=== PATIENT | female | born 1980 | race Caucasian/White ===

== ENCOUNTER 2016-12-08 04:14 | Observation (INO) | payer MEDICARE, MEDICAID ==
[~2016-12-08] VITALS: Ht 162.6 cm; Wt 59.3 kg
[~2016-12-08 04:14] MED LIST: ALBU8.5H3 INH; ARIP400S INJ; ARIP400S3 INJ; ASEN10TA9; BUDE10.2 INH; BUSP15TA PO; CARB100C; CITA10TA4; CLON1POW5; GABA-827; HYDR25CA PO; NITR100C6 PO; RISP0.5T18 PO; SERT100T PO; SERT50TA PO; TRAZ100T15 PO; ZIPR40CA3
[2016-12-08 05:18] LABS: HEMOGLOBIN 12.9 g/dL (11.7-16.4)
[2016-12-08 05:26] LABS: DAU SCREEN DISCLAIMER
[2016-12-08 05:28] LABS: PATH.CAST-FLAG NOT PRESENT; SPERM-FLAG NOT PRESENT; SRC-FLAG NOT PRESENT; XTAL-FLAG NOT PRESENT; YLC-FLAG NOT PRESENT
[2016-12-08 05:57] LABS: ACETAMINOPHEN 2 mcg/mL (10-30); ASPARTATE AMINO TRANSFERASE 54 U/L (15-37); BLOOD UREA NITROGEN 8 mg/dL (7-18)
[2016-12-08] MEDS ORDERED: NITROFURANTOIN (MACROBID) 100 MG CAPSULE PO ONE (10:00)
[2016-12-08] MEDS ORDERED: DEXTROSE 4 GM TAB.CHEW PO PRN (11:00)
[2016-12-08] MEDS ORDERED: GLUCAGON 1 MG IM PRN (11:00)
[2016-12-08] MEDS ORDERED: DEXTROSE 50%, 50ML SYRINGE IVPush PRN (11:00)
[2016-12-08 11:11] VITALS: BP 110/73
[2016-12-08] MEDS: NITROFURANTOIN (MACROBID) 100 MG CAPSULE PO SCH ×2 (11:19→22:11)
[2016-12-08] MEDS: POTASSIUM CHLORIDE 20 MEQ TAB.ER.PRT PO SCH ×3 (11:56→22:11)
[2016-12-08 16:47] VITALS: BP 98/69
[2016-12-08] MEDS ORDERED: ACETAMINOPHEN 325 MG TABLET PO PRN (17:00)
[2016-12-08 17:38] LABS: IS PT STATUS REG ER OR PRE ER? NO
[2016-12-08 19:28] VITALS: BP 108/64
[2016-12-08] MEDS ORDERED: SODIUM CHLORIDE FLUSH 10ML SYR IVF SCH (21:00)
[2016-12-09 07:58] VITALS: BP 110/71
[2016-12-09] MEDS: NITROFURANTOIN (MACROBID) 100 MG CAPSULE PO SCH (08:13)
[2016-12-09 09:07] LABS: BLOOD UREA NITROGEN 6 mg/dL (7-18)
[2016-12-09] MEDS ORDERED: NITR100C6 PO (11:27)
== END 2016-12-09 12:45 ==
LOC: ED 09:58 → INTOOBSV 09:59 → EDIP 09:59 → SUATTDRO 10:20 → ED 10:34 → 3E 11:09
PROVIDERS: ADMIT Internal Medicine; ATTEND Internal Medicine
DX: O26.891 Other specified pregnancy related conditions, first trimester (principal); R45.851 Suicidal ideations; E16.2 Hypoglycemia, unspecified; E87.1 Hypo-osmolality and hyponatremia; E87.6 Hypokalemia; F15.10 Other stimulant abuse, uncomplicated; F17.210 Nicotine dependence, cigarettes, uncomplicated; F31.9 Bipolar disorder, unspecified; F41.0 Panic disorder [episodic paroxysmal anxiety]; F41.1 Generalized anxiety disorder; G43.909 Migraine, unspecified, not intractable, without status migrainosus; J45.20 Mild intermittent asthma, uncomplicated; O23.11 Infections of bladder in pregnancy, first trimester; O98.411 Viral hepatitis complicating pregnancy, first trimester; O99.281 Endocrine, nutritional and metabolic diseases complicating pregnancy, first trimester; O99.321 Drug use complicating pregnancy, first trimester; O99.331 Smoking (tobacco) complicating pregnancy, first trimester; O99.341 Other mental disorders complicating pregnancy, first trimester; O99.351 Diseases of the nervous system complicating pregnancy, first trimester; O99.511 Diseases of the respiratory system complicating pregnancy, first trimester
CPT/HCPCS: 36415; 76801; 80048; 80053; 80307; 80329; 81003; 82962; 83735; 84484; 84702; 84703; 85025; 87086; 93005; 99285; G0378; G0480

== ENCOUNTER 2017-03-27 14:47 | Observation (INO) | payer MEDICARE, MEDICAID ==
[~2017-03-27] VITALS: Ht 162.6 cm; Wt 70.8 kg
[2017-03-27 15:20] LABS: HEMATOCRIT 38.8 % (34.6-47.8); HEMOGLOBIN 12.9 g/dL (11.7-16.4); WHITE BLOOD COUNT 11.2 x10^3/uL (3.4-10)
[2017-03-27 15:30] LABS: BLOOD UREA NITROGEN 6 mg/dL (7-18)
[2017-03-27 15:32] LABS: ACETAMINOPHEN < 2 mcg/mL (10-30)
[2017-03-27 16:07] LABS: DAU SCREEN DISCLAIMER
[2017-03-27] MEDS ORDERED: DIPHENHYDRAMINE 50 MG CAPSULE PO PRN (20:00)
[2017-03-27 20:34] VITALS: BP 106/65
[2017-03-27] MEDS ORDERED: PROP20SO PO/NG (23:39)
[2017-03-27] MEDS ORDERED: CITA20TA9 PO (23:41)
[2017-03-27] MEDS ORDERED: FLUT9.9S INH (23:45)
[2017-03-27] MEDS ORDERED: BUDE10.2 INH (23:47)
[2017-03-28 08:00] VITALS: BP 86/47
[2017-03-28] MEDS: ACETAMINOPHEN 325 MG TABLET PO PRN (08:16)
[2017-03-28 20:02] VITALS: BP 103/63
[2017-03-28] MEDS: CEFDINIR 300 MG CAPSULE PO SCH (20:23)
[2017-03-29 07:04] VITALS: BP 98/66
[2017-03-29] MEDS: CEFDINIR 300 MG CAPSULE PO SCH ×2 (09:25→20:52)
[2017-03-29] MEDS: PRENATAL VIT/IRON/FA 1 EACH TABLET PO SCH (09:25)
[2017-03-29] MEDS: ACETAMINOPHEN 325 MG TABLET PO PRN (10:44)
[2017-03-29 20:43] VITALS: BP 124/77
[2017-03-29] MEDS: DIPHENHYDRAMINE 25 MG CAPSULE PO PRN (20:52)
[2017-03-29 21:34] VITALS: BP 101/64
[2017-03-29] MEDS: LACTOBACILLUS CHEW TABLET PO SCH (22:42)
[2017-03-30 02:44] VITALS: BP 90/51
[2017-03-30 07:39] VITALS: BP 103/53
[2017-03-30] MEDS: PRENATAL VIT/IRON/FA 1 EACH TABLET PO SCH (09:06)
[2017-03-30] MEDS: ACETAMINOPHEN 325 MG TABLET PO PRN ×2 (09:06→20:47)
[2017-03-30] MEDS: LACTOBACILLUS CHEW TABLET PO SCH ×3 (09:06→20:47)
[2017-03-30] MEDS: CEFDINIR 300 MG CAPSULE PO SCH ×2 (09:07→20:47)
[2017-03-30 12:00] VITALS: BP 101/63
[2017-03-30] MEDS ORDERED: DIPHENHYDRAMINE 25 MG CAPSULE PO ONE (12:00)
[2017-03-30] MEDS ORDERED: FLUTICASONE NASAL SPRAY 16GM NAS PRN (12:30)
[2017-03-30 19:48] VITALS: BP 102/68
[2017-03-30] MEDS: DIPHENHYDRAMINE 25 MG CAPSULE PO PRN (23:22)
[2017-03-31 07:56] VITALS: BP 108/68
[2017-03-31] MEDS: FLUTICASONE/VILANTEROL 200-25MCG/INH INH SCH ×2 (09:00→11:45)
[2017-03-31] MEDS: CEFDINIR 300 MG CAPSULE PO SCH ×2 (09:00→20:32)
[2017-03-31] MEDS: LACTOBACILLUS CHEW TABLET PO SCH ×3 (09:00→20:32)
[2017-03-31] MEDS: PRENATAL VIT/IRON/FA 1 EACH TABLET PO SCH (09:00)
[2017-03-31] MEDS: ACETAMINOPHEN 325 MG TABLET PO PRN (13:44)
[2017-03-31 18:08] LABS: HEMATOCRIT 41.5 % (34.6-47.8); HEMOGLOBIN 13.6 g/dL (11.7-16.4); WHITE BLOOD COUNT 9.2 x10^3/uL (3.4-10)
[2017-03-31 18:22] LABS: HIV 1&2 ANTIBODY SCREEN Nonreactive (Nonreactive); HIV-1 p24 ANTIGEN Nonreactive (Nonreactive)
[2017-03-31 20:00] VITALS: BP 113/74
[2017-03-31] MEDS: DIPHENHYDRAMINE 25 MG CAPSULE PO PRN (21:43)
[2017-04-01 07:23] VITALS: BP 103/66
[2017-04-01] MEDS: PRENATAL VIT/IRON/FA 1 EACH TABLET PO SCH (08:02)
[2017-04-01] MEDS: CEFDINIR 300 MG CAPSULE PO SCH ×2 (08:02→20:10)
[2017-04-01] MEDS: LACTOBACILLUS CHEW TABLET PO SCH ×3 (08:02→20:10)
[2017-04-01] MEDS: FLUTICASONE/VILANTEROL 200-25MCG/INH INH SCH (08:02)
[2017-04-01] MEDS: ACETAMINOPHEN 325 MG TABLET PO PRN ×2 (09:33→20:10)
[2017-04-01 20:04] VITALS: BP 139/82
[2017-04-01] MEDS: DIPHENHYDRAMINE 25 MG CAPSULE PO PRN (21:35)
[2017-04-02 08:00] VITALS: BP 103/66
[2017-04-02] MEDS: CEFDINIR 300 MG CAPSULE PO SCH ×2 (08:34→20:37)
[2017-04-02] MEDS: LACTOBACILLUS CHEW TABLET PO SCH ×3 (08:34→20:37)
[2017-04-02] MEDS: PRENATAL VIT/IRON/FA 1 EACH TABLET PO SCH (08:34)
[2017-04-02] MEDS: FLUTICASONE/VILANTEROL 200-25MCG/INH INH SCH (08:35)
[2017-04-02] MEDS: DIPHENHYDRAMINE 25 MG CAPSULE PO PRN ×2 (13:25→23:39)
[2017-04-02] MEDS: LURASIDONE 20 MG TABLET PO SCH (16:30)
[2017-04-02 19:36] VITALS: BP 109/73
[2017-04-02] MEDS: ACETAMINOPHEN 325 MG TABLET PO PRN (22:24)
[2017-04-03 07:25] VITALS: BP 101/68
[2017-04-03] MEDS: PRENATAL VIT/IRON/FA 1 EACH TABLET PO SCH (09:43)
[2017-04-03] MEDS: FLUTICASONE/VILANTEROL 200-25MCG/INH INH SCH (09:44)
[2017-04-03] MEDS: ACETAMINOPHEN 325 MG TABLET PO PRN ×2 (09:48→20:49)
[2017-04-03] MEDS: LACTOBACILLUS CHEW TABLET PO SCH ×3 (11:15→20:42)
[2017-04-03] MEDS: DIPHENHYDRAMINE 25 MG CAPSULE PO PRN ×2 (12:50→22:16)
[2017-04-03] MEDS: LURASIDONE 20 MG TABLET PO SCH (17:37)
[2017-04-03 19:47] VITALS: BP 94/63
[2017-04-04 07:29] VITALS: BP 101/63
[2017-04-04] MEDS: DIPHENHYDRAMINE 25 MG CAPSULE PO PRN ×2 (08:47→21:45)
[2017-04-04] MEDS: PRENATAL VIT/IRON/FA 1 EACH TABLET PO SCH (08:56)
[2017-04-04] MEDS: FLUTICASONE/VILANTEROL 200-25MCG/INH INH SCH (08:57)
[2017-04-04] MEDS: LACTOBACILLUS CHEW TABLET PO SCH ×3 (08:57→20:22)
[2017-04-04] MEDS: LURASIDONE 20 MG TABLET PO SCH (16:15)
[2017-04-04 19:45] VITALS: BP 106/75
[2017-04-05] MEDS: ACETAMINOPHEN 325 MG TABLET PO PRN ×2 (02:32→18:43)
[2017-04-05 08:06] VITALS: BP 96/63
[2017-04-05] MEDS: PRENATAL VIT/IRON/FA 1 EACH TABLET PO SCH (08:56)
[2017-04-05] MEDS: LACTOBACILLUS CHEW TABLET PO SCH ×3 (08:56→21:00)
[2017-04-05] MEDS: FLUTICASONE/VILANTEROL 200-25MCG/INH INH SCH (08:56)
[2017-04-05] MEDS: FLUTICASONE NASAL SPRAY 16GM NAS PRN (09:30)
[2017-04-05] MEDS: DIPHENHYDRAMINE 25 MG CAPSULE PO PRN (16:11)
[2017-04-05] MEDS: LURASIDONE 20 MG TABLET PO SCH (16:54)
[2017-04-05 19:52] VITALS: BP 101/63
[2017-04-06 07:39] VITALS: BP 104/54
[2017-04-06] MEDS: LURASIDONE 20 MG TABLET PO SCH ×2 (09:39→16:41)
[2017-04-06] MEDS: LACTOBACILLUS CHEW TABLET PO SCH ×3 (09:40→21:35)
[2017-04-06] MEDS: PRENATAL VIT/IRON/FA 1 EACH TABLET PO SCH (09:40)
[2017-04-06] MEDS: FLUTICASONE/VILANTEROL 200-25MCG/INH INH SCH (09:45)
[2017-04-06] MEDS: FLUTICASONE NASAL SPRAY 16GM NAS PRN (09:46)
[2017-04-06 19:45] VITALS: BP 107/69
[2017-04-07] MEDS: DIPHENHYDRAMINE 25 MG CAPSULE PO PRN ×2 (00:48→18:00)
[2017-04-07 07:11] VITALS: BP 82/44
[2017-04-07] MEDS: FLUTICASONE/VILANTEROL 200-25MCG/INH INH SCH (09:12)
[2017-04-07] MEDS: LACTOBACILLUS CHEW TABLET PO SCH ×3 (09:13→20:13)
[2017-04-07] MEDS: PRENATAL VIT/IRON/FA 1 EACH TABLET PO SCH (09:13)
[2017-04-07] MEDS: FLUTICASONE NASAL SPRAY 16GM NAS PRN (09:14)
[2017-04-07] MEDS: LURASIDONE 20 MG TABLET PO SCH ×2 (09:14→16:30)
[2017-04-07 19:44] VITALS: BP 112/73
[2017-04-07] MEDS: ACETAMINOPHEN 325 MG TABLET PO PRN (20:13)
[2017-04-08 07:13] VITALS: BP 100/68
[2017-04-08] MEDS: PRENATAL VIT/IRON/FA 1 EACH TABLET PO SCH (08:27)
[2017-04-08] MEDS: FLUTICASONE/VILANTEROL 200-25MCG/INH INH SCH (08:28)
[2017-04-08] MEDS: LURASIDONE 20 MG TABLET PO SCH ×2 (08:28→16:01)
[2017-04-08] MEDS: LACTOBACILLUS CHEW TABLET PO SCH ×3 (08:28→19:57)
[2017-04-08] MEDS: ACETAMINOPHEN 325 MG TABLET PO PRN ×2 (08:32→18:27)
[2017-04-08] MEDS: FLUTICASONE NASAL SPRAY 16GM NAS PRN (08:32)
[2017-04-08 19:38] VITALS: BP 108/73
[2017-04-08] MEDS: DIPHENHYDRAMINE 25 MG CAPSULE PO PRN (19:57)
[2017-04-09 06:24] LABS: HEMATOCRIT 36.7 % (34.6-47.8); HEMOGLOBIN 12.1 g/dL (11.7-16.4)
[2017-04-09 08:00] VITALS: BP 119/76
[2017-04-09] MEDS: ACETAMINOPHEN 325 MG TABLET PO PRN ×3 (08:23→20:42)
[2017-04-09] MEDS: LACTOBACILLUS CHEW TABLET PO SCH ×3 (08:23→20:42)
[2017-04-09] MEDS: LURASIDONE 20 MG TABLET PO SCH ×2 (08:23→16:15)
[2017-04-09] MEDS: FLUTICASONE/VILANTEROL 200-25MCG/INH INH SCH (09:14)
[2017-04-09] MEDS: FLUTICASONE NASAL SPRAY 16GM NAS PRN (09:14)
[2017-04-09] MEDS: PRENATAL VIT/IRON/FA 1 EACH TABLET PO SCH (09:14)
[2017-04-09] MEDS ORDERED: metroNIDAZOLE 500 MG TABLET PO ONE (10:00)
[2017-04-09] MEDS ORDERED: ONDANSETRON ODT 8 MG PO ONE (10:00)
[2017-04-09] MEDS: DIPHENHYDRAMINE 25 MG CAPSULE PO PRN ×2 (16:15→23:32)
[2017-04-09 19:29] VITALS: BP 101/63
[2017-04-10] MEDS: PRENATAL VIT/IRON/FA 1 EACH TABLET PO SCH (08:40)
[2017-04-10] MEDS: FLUTICASONE/VILANTEROL 200-25MCG/INH INH SCH (08:40)
[2017-04-10] MEDS: LURASIDONE 20 MG TABLET PO SCH ×2 (08:40→16:22)
[2017-04-10] MEDS: LACTOBACILLUS CHEW TABLET PO SCH ×3 (08:40→20:48)
[2017-04-10] MEDS: ACETAMINOPHEN 325 MG TABLET PO PRN ×2 (08:43→20:48)
[2017-04-10 08:49] VITALS: BP 105/67
[2017-04-10] MEDS: FLUTICASONE NASAL SPRAY 16GM NAS PRN (12:18)
[2017-04-10] MEDS: DIPHENHYDRAMINE 25 MG CAPSULE PO PRN (18:30)
[2017-04-10 19:49] VITALS: BP 110/74
[2017-04-11] MEDS: DIPHENHYDRAMINE 25 MG CAPSULE PO PRN ×3 (02:36→21:34)
[2017-04-11] MEDS: ACETAMINOPHEN 325 MG TABLET PO PRN ×3 (03:49→17:22)
[2017-04-11] MEDS: FLUTICASONE/VILANTEROL 200-25MCG/INH INH SCH (08:20)
[2017-04-11] MEDS: LACTOBACILLUS CHEW TABLET PO SCH ×3 (08:20→21:34)
[2017-04-11] MEDS: FLUTICASONE NASAL SPRAY 16GM NAS PRN (08:20)
[2017-04-11] MEDS: LURASIDONE 20 MG TABLET PO SCH ×2 (08:20→17:00)
[2017-04-11 08:28] VITALS: BP 117/74
[2017-04-11] MEDS: PRENATAL VIT/IRON/FA 1 EACH TABLET PO SCH (12:20)
[2017-04-11 20:00] VITALS: BP 112/76
[2017-04-12] MEDS: ACETAMINOPHEN 325 MG TABLET PO PRN ×2 (00:53→16:18)
[2017-04-12] MEDS: DIPHENHYDRAMINE 25 MG CAPSULE PO PRN ×2 (05:28→19:50)
[2017-04-12 07:27] VITALS: BP 122/83
[2017-04-12] MEDS: FLUTICASONE/VILANTEROL 200-25MCG/INH INH SCH (08:25)
[2017-04-12] MEDS: LURASIDONE 20 MG TABLET PO SCH (08:26)
[2017-04-12] MEDS: PRENATAL VIT/IRON/FA 1 EACH TABLET PO SCH (08:26)
[2017-04-12] MEDS: LACTOBACILLUS CHEW TABLET PO SCH ×3 (08:27→22:04)
[2017-04-12] MEDS ORDERED: LURASIDONE 20 MG TABLET PO SCH ×2 (17:00→18:00)
[2017-04-12 20:25] VITALS: BP 114/74
[2017-04-12] MEDS ORDERED: DIPHENHYDRAMINE 25 MG CAPSULE PO SCH (21:00)
[2017-04-13 07:39] VITALS: BP 103/67
[2017-04-13] MEDS: LACTOBACILLUS CHEW TABLET PO SCH (08:05)
[2017-04-13] MEDS: PRENATAL VIT/IRON/FA 1 EACH TABLET PO SCH (08:05)
[2017-04-13] MEDS: FLUTICASONE/VILANTEROL 200-25MCG/INH INH SCH (08:17)
[2017-04-13] MEDS: ACETAMINOPHEN 325 MG TABLET PO PRN (14:36)
[2017-04-13] MEDS ORDERED: LURA20TA PO (14:48)
[2017-04-13] MEDS ORDERED: FLUT1BLS INH (14:48)
[2017-04-13] MEDS ORDERED: DIPH25CA61 PO ×2 (14:48)
[2017-04-13] MEDS ORDERED: LURASIDONE 20 MG TABLET PO SCH (17:00)
== END 2017-04-13 16:12 | disposition home or self-care (01) ==
LOC: ED 19:20 → INTOOBSV 19:25 → EDIP 19:25 → SUATTDRO 19:38 → 3E 20:25 → 3NE 03-29 21:32 → 3E 03-30 12:41
PROVIDERS: ADMIT Hospitalist; ATTEND Internal Medicine
DX: O99.342 Other mental disorders complicating pregnancy, second trimester (principal); R45.851 Suicidal ideations; F20.9 Schizophrenia, unspecified; F31.9 Bipolar disorder, unspecified; F43.10 Post-traumatic stress disorder, unspecified; F41.0 Panic disorder [episodic paroxysmal anxiety]; O23.42 Unspecified infection of urinary tract in pregnancy, second trimester; O98.32 Other infections with a predominantly sexual mode of transmission complicating childbirth; A59.9 Trichomoniasis, unspecified; O99.324 Drug use complicating childbirth; F15.20 Other stimulant dependence, uncomplicated; O35.0XX0 Maternal care for (suspected) central nervous system malformation in fetus, not applicable or unspecified; G91.9 Hydrocephalus, unspecified; O99.52 Diseases of the respiratory system complicating childbirth; J45.909 Unspecified asthma, uncomplicated; O99.332 Smoking (tobacco) complicating pregnancy, second trimester; F17.210 Nicotine dependence, cigarettes, uncomplicated; O26.892 Other specified pregnancy related conditions, second trimester; R19.7 Diarrhea, unspecified; O32.2XX0 Maternal care for transverse and oblique lie, not applicable or unspecified; Z3A.26 26 weeks gestation of pregnancy; Z91.14 Patient's other noncompliance with medication regimen; Z91.5 Personal history of self-harm; Z81.8 Family history of other mental and behavioral disorders; Z81.1 Family history of alcohol abuse and dependence
CPT/HCPCS: 36415; 76815; 80048; 80307; 80329; 81001; 82040; 85025; 86592; 86703; 86762; 86850; 86900; 87086; 87340; 87491; 87591; 87899; 99285; G0378; Q0162; Q0163; G0435; G0480

== ENCOUNTER 2017-06-17 11:35 | Observation (INO) | payer MEDICARE, MEDICAID ==
[~2017-06-17] VITALS: Ht 162.6 cm; Wt 75.5 kg
[~2017-06-17 11:35] MED LIST changes: -ALBU8.5H3 INH; +ALBU8.5H8 INH; +CITA20TA9 PO; +DIPH25CA61 PO; +FLUT1BLS INH; +FLUT9.9S INH; +LURA20TA PO; +PROP20SO PO/NG; -RISP0.5T18 PO; +RISP0.5T24 PO
[2017-06-17 12:03] LABS: DAU SCREEN DISCLAIMER
[2017-06-17 13:00] LABS: HEMATOCRIT 35.9 % (34.6-47.8); HEMOGLOBIN 11.8 g/dL (11.7-16.4); WHITE BLOOD COUNT 8.3 x10^3/uL (3.4-10)
[2017-06-17 13:13] LABS: ACETAMINOPHEN < 2 mcg/mL (10-30); BLOOD UREA NITROGEN 4 mg/dL (7-18)
[2017-06-17] MEDS ORDERED: DIPHENHYDRAMINE 25 MG CAPSULE PO PRN (17:30)
[2017-06-17] MEDS ORDERED: FLUTICASONE NASAL SPRAY 16GM NAS PRN (17:30)
[2017-06-17 19:21] VITALS: BP 113/73
[2017-06-17] MEDS ORDERED: IBUPROFEN 200 MG TABLET PO PRN (20:30)
[2017-06-17] MEDS: DIPHENHYDRAMINE 25 MG CAPSULE PO SCH (20:37)
[2017-06-18] MEDS: PRENATAL VIT/IRON/FA 1 EACH TABLET PO SCH (07:54)
[2017-06-18] MEDS: ACETAMINOPHEN 325 MG TABLET PO PRN ×3 (07:56→21:01)
[2017-06-18 08:13] VITALS: BP 111/77
[2017-06-18] MEDS: FLUTICASONE/VILANTEROL 200-25MCG/INH INH SCH (09:00)
[2017-06-18 19:28] VITALS: BP 122/78
[2017-06-18] MEDS: DIPHENHYDRAMINE 25 MG CAPSULE PO SCH (20:58)
[2017-06-19 08:00] VITALS: BP 112/57
[2017-06-19] MEDS: PRENATAL VIT/IRON/FA 1 EACH TABLET PO SCH (08:28)
[2017-06-19] MEDS: FLUTICASONE/VILANTEROL 200-25MCG/INH INH SCH (08:29)
[2017-06-19] MEDS: ACETAMINOPHEN 325 MG TABLET PO PRN ×3 (11:40→20:05)
[2017-06-19 19:19] VITALS: BP 119/80
[2017-06-19] MEDS ORDERED: FLUTICASONE NASAL SPRAY 16GM NAS PRN (20:00)
[2017-06-19] MEDS: DIPHENHYDRAMINE 25 MG CAPSULE PO SCH (20:05)
[2017-06-19] MEDS: CALCIUM CARBONATE 500 MG TAB.CHEW PO PRN (22:09)
[2017-06-20] MEDS: ACETAMINOPHEN 325 MG TABLET PO PRN ×4 (05:01→21:13)
[2017-06-20 08:41] VITALS: BP 116/79
[2017-06-20] MEDS: FLUTICASONE/VILANTEROL 200-25MCG/INH INH SCH (08:49)
[2017-06-20] MEDS: PRENATAL VIT/IRON/FA 1 EACH TABLET PO SCH (08:49)
[2017-06-20] MEDS ORDERED: metroNIDAZOLE 500 MG TABLET PO ONE (09:00)
[2017-06-20] MEDS: DIPHENHYDRAMINE 25 MG CAPSULE PO PRN ×2 (11:16→17:19)
[2017-06-20 19:32] VITALS: BP 118/70
[2017-06-20] MEDS: CALCIUM CARBONATE 500 MG TAB.CHEW PO PRN (21:13)
[2017-06-20] MEDS: DIPHENHYDRAMINE 25 MG CAPSULE PO SCH (21:13)
[2017-06-21] MEDS: PRENATAL VIT/IRON/FA 1 EACH TABLET PO SCH (08:42)
[2017-06-21] MEDS: FLUTICASONE/VILANTEROL 200-25MCG/INH INH SCH (08:43)
[2017-06-21 08:47] VITALS: BP 117/69
[2017-06-21] MEDS: ACETAMINOPHEN 325 MG TABLET PO PRN ×3 (09:15→19:30)
[2017-06-21] MEDS: DIPHENHYDRAMINE 25 MG CAPSULE PO PRN ×2 (09:59→18:46)
[2017-06-21] MEDS: CALCIUM CARBONATE 500 MG TAB.CHEW PO PRN (19:30)
[2017-06-21 19:40] VITALS: BP 111/79
[2017-06-21] MEDS: RISPERIDONE 2 MG TABLET PO SCH (21:37)
[2017-06-21] MEDS: DIPHENHYDRAMINE 25 MG CAPSULE PO SCH (21:37)
[2017-06-22 07:52] VITALS: BP 116/73
[2017-06-22] MEDS: PRENATAL VIT/IRON/FA 1 EACH TABLET PO SCH (08:41)
[2017-06-22] MEDS: FLUTICASONE/VILANTEROL 200-25MCG/INH INH SCH (08:41)
[2017-06-22] MEDS: ACETAMINOPHEN 325 MG TABLET PO PRN ×3 (08:48→20:51)
[2017-06-22] MEDS: DIPHENHYDRAMINE 25 MG CAPSULE PO PRN (12:41)
[2017-06-22 19:25] VITALS: BP 123/80
[2017-06-22] MEDS: RISPERIDONE 2 MG TABLET PO SCH (20:09)
[2017-06-22] MEDS: DIPHENHYDRAMINE 25 MG CAPSULE PO SCH (20:10)
[2017-06-23] MEDS: ACETAMINOPHEN 325 MG TABLET PO PRN (04:25)
[2017-06-23 07:30] VITALS: BP 114/76
[2017-06-23] MEDS: FLUTICASONE/VILANTEROL 200-25MCG/INH INH SCH (08:51)
[2017-06-23] MEDS: PRENATAL VIT/IRON/FA 1 EACH TABLET PO SCH (08:51)
[2017-06-23] MEDS: DIPHENHYDRAMINE 25 MG CAPSULE PO PRN (13:21)
[2017-06-23] MEDS ORDERED: RISP2TAB35 PO (14:23)
== END 2017-06-23 14:45 | disposition home or self-care (01) ==
LOC: ED 13:11 → EDIP 16:19 → 3E 18:14
PROVIDERS: ADMIT Internal Medicine; ATTEND Family Medicine
DX: O99.343 Other mental disorders complicating pregnancy, third trimester (principal); R45.851 Suicidal ideations; F20.9 Schizophrenia, unspecified; F15.20 Other stimulant dependence, uncomplicated; O99.333 Smoking (tobacco) complicating pregnancy, third trimester; O99.513 Diseases of the respiratory system complicating pregnancy, third trimester; J45.909 Unspecified asthma, uncomplicated; G43.909 Migraine, unspecified, not intractable, without status migrainosus; F43.10 Post-traumatic stress disorder, unspecified; F17.210 Nicotine dependence, cigarettes, uncomplicated; Z3A.38 38 weeks gestation of pregnancy; B19.20 Unspecified viral hepatitis C without hepatic coma
CPT/HCPCS: 36415; 76805; 80048; 80307; 80329; 81001; 82040; 84703; 85025; 87086; 87147; 93005; 99285; G0378; Q0163; G0479; G0480

== ENCOUNTER 2017-07-25 10:16 | Inpatient (IN) | payer MEDICARE, MEDICAID ==
[~2017-07-25] VITALS: Ht 162.6 cm; Wt 76.8 kg
[~2017-07-25 10:16] MED LIST changes: +RISP2TAB35 PO
[2017-07-25 11:17] LABS: DAU SCREEN DISCLAIMER
[2017-07-25] MEDS ORDERED: PRENATAL PO (11:29)
[2017-07-25] MEDS ORDERED: ALBU18HF INH (11:29)
[2017-07-25] MEDS ORDERED: DIPH25TA65 PO (11:29)
[2017-07-25 11:41] LABS: HEMATOCRIT 35.8 % (34.6-47.8); HEMOGLOBIN 11.5 g/dL (11.7-16.4); WHITE BLOOD COUNT 10.3 x10^3/uL (3.4-10)
[2017-07-25 11:52] LABS: ASPARTATE AMINO TRANSFERASE 33 U/L (15-37); BLOOD UREA NITROGEN 5 mg/dL (7-18)
[2017-07-25 11:55] LABS: ACETAMINOPHEN < 2 mcg/mL (10-30)
[2017-07-25] MEDS ORDERED: NITROFURANTOIN (MACROBID) 100 MG CAPSULE PO ONE (12:00)
[2017-07-25] MEDS ORDERED: DOCUSATE 100 MG CAPSULE PO PRN (16:30)
[2017-07-25] MEDS: SODIUM CHLORIDE 0.9% 1,000 ML IV SCH (17:08)
[2017-07-25 18:06] VITALS: BP 131/74
[2017-07-25 20:08] VITALS: BP 133/78
[2017-07-25] MEDS: NITROFURANTOIN (MACROBID) 100 MG CAPSULE PO SCH (20:36)
[2017-07-25] MEDS: DIPHENHYDRAMINE 25 MG CAPSULE PO PRN (20:37)
[2017-07-25] MEDS: ACETAMINOPHEN 325 MG TABLET PO PRN (20:38)
[2017-07-25] MEDS ORDERED: RISPERIDONE 2 MG TABLET PO SCH (21:00)
[2017-07-26] MEDS: SODIUM CHLORIDE 0.9% 1,000 ML IV SCH (00:46)
[2017-07-26 02:30] VITALS: BP 118/73
[2017-07-26 04:38] LABS: HEMATOCRIT 33.1 % (34.6-47.8); HEMOGLOBIN 10.8 g/dL (11.7-16.4); WHITE BLOOD COUNT 8.7 x10^3/uL (3.4-10)
[2017-07-26 04:47] LABS: ASPARTATE AMINO TRANSFERASE 28 U/L (15-37); BLOOD UREA NITROGEN 8 mg/dL (7-18)
[2017-07-26 07:28] VITALS: BP 98/63
[2017-07-26] MEDS: NITROFURANTOIN (MACROBID) 100 MG CAPSULE PO SCH ×2 (08:31→21:55)
[2017-07-26] MEDS: ACETAMINOPHEN 325 MG TABLET PO PRN ×3 (10:08→23:30)
[2017-07-26] MEDS: FLUTICASONE/VILANTEROL 200-25MCG/INH INH SCH (11:59)
[2017-07-26] MEDS ORDERED: RISPERIDONE 1 MG TABLET PO ONE (14:00)
[2017-07-26 14:20] VITALS: BP 126/79
[2017-07-26] MEDS: DIPHENHYDRAMINE 25 MG CAPSULE PO PRN (18:42)
[2017-07-26 19:19] VITALS: BP_SYST 120; BP_SYST 125; BP_DIAS 75; BP_DIAS 77
[2017-07-26] MEDS ORDERED: RISPERIDONE 1 MG TABLET PO SCH (21:00)
[2017-07-27] MEDS: DIPHENHYDRAMINE 25 MG CAPSULE PO PRN ×3 (05:58→20:30)
[2017-07-27 07:37] VITALS: BP 124/74
[2017-07-27] MEDS: NITROFURANTOIN (MACROBID) 100 MG CAPSULE PO SCH ×2 (08:12→20:34)
[2017-07-27] MEDS: ACETAMINOPHEN 325 MG TABLET PO PRN ×3 (08:12→20:29)
[2017-07-27] MEDS: FLUTICASONE/VILANTEROL 200-25MCG/INH INH SCH (08:13)
[2017-07-27] MEDS: RISPERIDONE 1 MG TABLET PO SCH ×2 (14:18→20:30)
[2017-07-27 19:12] VITALS: BP 138/89
[2017-07-27] MEDS ORDERED: RISPERIDONE 1 MG TABLET PO SCH (21:00)
[2017-07-28] VITALS (8 sets, daily range): BP systolic 109–159; BP diastolic 69–97
[2017-07-28] MEDS: DIPHENHYDRAMINE 25 MG CAPSULE PO PRN ×2 (05:32→22:51)
[2017-07-28] MEDS: ACETAMINOPHEN 325 MG TABLET PO PRN ×2 (05:32→13:45)
[2017-07-28 05:50] LABS: HEMATOCRIT 31.6 % (34.6-47.8); HEMOGLOBIN 10.4 g/dL (11.7-16.4); WHITE BLOOD COUNT 9.3 x10^3/uL (3.4-10)
[2017-07-28 06:19] LABS: ASPARTATE AMINO TRANSFERASE 24 U/L (15-37); BLOOD UREA NITROGEN 12 mg/dL (7-18)
[2017-07-28] MEDS ORDERED: RISPERIDONE 2 MG TABLET ONE (08:03)
[2017-07-28] MEDS: FLUTICASONE/VILANTEROL 200-25MCG/INH INH SCH (08:06)
[2017-07-28] MEDS: NITROFURANTOIN (MACROBID) 100 MG CAPSULE PO SCH ×2 (08:07→21:03)
[2017-07-28] MEDS: RISPERIDONE 1 MG TABLET PO SCH ×2 (08:08→21:27)
[2017-07-28] MEDS ORDERED: LACTATED RINGERS 1,000 ML IV SCH ×4 (12:24→15:00)
[2017-07-28] MEDS ORDERED: OXYTOCIN 30U/ 0.9% NaCL 500ML 500 ML IV SCH ×2 (12:24→13:06)
[2017-07-28] MEDS ORDERED: LACTATED RINGERS 1,000 ML IVBOLUS ONE ×2 (12:30→13:30)
[2017-07-28] MEDS ORDERED: METOCLOPRAMIDE 5 MG/ML, 2ML IV ONE ×2 (12:30→13:30)
[2017-07-28] MEDS ORDERED: SODIUM CITRATE/CITRIC ACID 30 ML UDC PO ONE ×2 (12:30→13:30)
[2017-07-28 12:49] LABS: HEMATOCRIT 33.6 % (34.6-47.8); HEMOGLOBIN 10.9 g/dL (11.7-16.4); WHITE BLOOD COUNT 9.9 x10^3/uL (3.4-10)
[2017-07-28] MEDS ORDERED: NEWBORN KIT ONE (13:18)
[2017-07-28] MEDS ORDERED: SODIUM CITRATE/CITRIC ACID 30 ML UDC ONE (13:19)
[2017-07-28] MEDS ORDERED: METOCLOPRAMIDE 5 MG/ML, 2ML ONE (13:19)
[2017-07-28] MEDS ORDERED: ACETAMINOPHEN 325 MG TABLET ONE (13:44)
[2017-07-28] MEDS ORDERED: EPHEDRINE 50 MG/ML, 1ML ONE (13:50)
[2017-07-28] MEDS ORDERED: PHENYLEPHRINE 10 MG/ML ONE (13:50)
[2017-07-28] MEDS ORDERED: ONDANSETRON 2MG/ML, 2ML ONE ×2 (13:50→15:32)
[2017-07-28] MEDS ORDERED: CEFAZOLIN 1,000 MG ONE (13:50)
[2017-07-28] MEDS ORDERED: morphine SULFATE/PF 0.5 MG/ML, 10ML ONE (13:55)
[2017-07-28] MEDS: OXYTOCIN 30U/ 0.9% NaCL 500ML 500 ML IV SCH (14:50)
[2017-07-28] MEDS: LACTATED RINGERS 1,000 ML IV SCH ×3 (14:50→22:50)
[2017-07-28] MEDS ORDERED: MISOPROSTOL 200 MCG TABLET PR PRN (15:00)
[2017-07-28] MEDS ORDERED: ACETAMINOPHEN 325 MG TABLET PO PRN (15:00)
[2017-07-28] MEDS ORDERED: KETOROLAC 30 MG/1 ML ONE (15:32)
[2017-07-28] MEDS: ONDANSETRON 2MG/ML, 2ML IV PRN ×2 (15:33→21:03)
[2017-07-28] MEDS: KETOROLAC 30 MG/1 ML IV SCH ×2 (15:34→21:03)
[2017-07-28] MEDS ORDERED: OXYcodone/APAP 5/325MG TABLET ONE (15:44)
[2017-07-28] MEDS: OXYcodone/APAP 5/325MG TABLET PO PRN (15:54)
[2017-07-28 22:25] LABS: HEMATOCRIT 31.4 % (34.6-47.8); HEMOGLOBIN 10.3 g/dL (11.7-16.4); WHITE BLOOD COUNT 13.8 x10^3/uL (3.4-10)
[2017-07-29] MEDS: PROMETHAZINE 25MG TABLET PO PRN (00:22)
[2017-07-29] MEDS: OXYTOCIN 30U/ 0.9% NaCL 500ML 500 ML IV SCH ×2 (00:50→10:50)
[2017-07-29] MEDS: OXYcodone IR 5MG TABLET PO PRN ×5 (01:20→20:06)
[2017-07-29] MEDS: LACTATED RINGERS 1,000 ML IV SCH ×3 (01:20→10:50)
[2017-07-29 02:50] VITALS: BP 118/73
[2017-07-29] MEDS: KETOROLAC 30 MG/1 ML IV SCH ×4 (03:17→22:45)
[2017-07-29] MEDS: DIPHENHYDRAMINE 25 MG CAPSULE PO PRN ×4 (04:25→22:45)
[2017-07-29 05:50] LABS: BLOOD UREA NITROGEN 11 mg/dL (7-18); HEMOGLOBIN 8.9 g/dL (11.7-16.4); WHITE BLOOD COUNT 10.5 x10^3/uL (3.4-10)
[2017-07-29 05:54] LABS: ASPARTATE AMINO TRANSFERASE 30 U/L (15-37)
[2017-07-29 06:13] LABS: HIV 1&2 ANTIBODY SCREEN Nonreactive (Nonreactive); HIV-1 p24 ANTIGEN Nonreactive (Nonreactive)
[2017-07-29 07:20] VITALS: BP 122/75
[2017-07-29] MEDS: RISPERIDONE 1 MG TABLET PO SCH ×2 (07:55→21:24)
[2017-07-29 09:59] LABS: HEP B SURF. AB 759.5 mIU/mL (0.0-10.0)
[2017-07-29] MEDS: ACETAMINOPHEN 325 MG TABLET PO PRN (10:20)
[2017-07-29] MEDS: NITROFURANTOIN (MACROBID) 100 MG CAPSULE PO SCH ×2 (10:22→21:24)
[2017-07-29] MEDS: PRENATAL VIT/IRON/FA 1 EACH TABLET PO SCH (10:22)
[2017-07-29] MEDS: DOCUSATE 100 MG CAPSULE PO PRN ×2 (10:22→20:06)
[2017-07-29 11:48] VITALS: BP 124/72
[2017-07-29] MEDS: FLUTICASONE/VILANTEROL 200-25MCG/INH INH SCH (17:12)
[2017-07-29 21:00] VITALS: BP 124/82
[2017-07-30 04:40] LABS: HEMATOCRIT 26.4 % (34.6-47.8); HEMOGLOBIN 8.8 g/dL (11.7-16.4); WHITE BLOOD COUNT 9.7 x10^3/uL (3.4-10)
[2017-07-30 04:49] LABS: BLOOD UREA NITROGEN 11 mg/dL (7-18)
[2017-07-30] MEDS: KETOROLAC 30 MG/1 ML IV SCH ×2 (04:52→11:16)
[2017-07-30 08:10] VITALS: BP 116/67
[2017-07-30] MEDS: NITROFURANTOIN (MACROBID) 100 MG CAPSULE PO SCH ×2 (08:28→21:49)
[2017-07-30] MEDS: PRENATAL VIT/IRON/FA 1 EACH TABLET PO SCH (08:29)
[2017-07-30] MEDS: OXYcodone IR 5MG TABLET PO PRN ×4 (08:29→21:49)
[2017-07-30] MEDS: RISPERIDONE 1 MG TABLET PO SCH ×2 (08:30→21:50)
[2017-07-30] MEDS: DOCUSATE 100 MG CAPSULE PO PRN ×2 (08:30→21:50)
[2017-07-30] MEDS: FLUTICASONE/VILANTEROL 200-25MCG/INH INH SCH (08:31)
[2017-07-30] MEDS: IBUPROFEN 600 MG TABLET PO PRN ×2 (16:54→23:19)
[2017-07-30] MEDS ORDERED: MAGNESIUM SULFATE PMX 2GM/50ML 50 ML IV ONE (18:30)
[2017-07-30 20:00] VITALS: BP 132/90
[2017-07-30] MEDS: MAGNESIUM CHLORIDE 64 MG TABLET.DR PO SCH (21:49)
[2017-07-30] MEDS: DIPHENHYDRAMINE 25 MG CAPSULE PO PRN (23:19)
[2017-07-31 05:34] LABS: BLOOD UREA NITROGEN 10 mg/dL (7-18)
[2017-07-31 05:42] LABS: HEMATOCRIT 27.9 % (34.6-47.8); HEMOGLOBIN 9.2 g/dL (11.7-16.4); WHITE BLOOD COUNT 8.4 x10^3/uL (3.4-10)
[2017-07-31] MEDS: IBUPROFEN 600 MG TABLET PO PRN ×2 (06:13→12:35)
[2017-07-31] MEDS: ACETAMINOPHEN 325 MG TABLET PO PRN ×2 (06:13→18:25)
[2017-07-31] MEDS ORDERED: FERROUS SULFATE 325 MG TABLET ONE (08:46)
[2017-07-31] MEDS: DOCUSATE 100 MG CAPSULE PO PRN (08:49)
[2017-07-31] MEDS: RISPERIDONE 1 MG TABLET PO SCH ×2 (08:49→20:16)
[2017-07-31] MEDS: PRENATAL VIT/IRON/FA 1 EACH TABLET PO SCH (08:49)
[2017-07-31] MEDS: MAGNESIUM CHLORIDE 64 MG TABLET.DR PO SCH ×3 (08:49→20:16)
[2017-07-31] MEDS: NITROFURANTOIN (MACROBID) 100 MG CAPSULE PO SCH ×2 (08:49→20:16)
[2017-07-31] MEDS: FERROUS SULFATE 325 MG TABLET PO SCH (08:49)
[2017-07-31] MEDS: FLUTICASONE/VILANTEROL 200-25MCG/INH INH SCH (09:00)
[2017-07-31 09:22] VITALS: BP 115/69
[2017-07-31] MEDS: DIPHENHYDRAMINE 25 MG CAPSULE PO PRN ×2 (10:22→19:47)
[2017-07-31] MEDS ORDERED: IBUP-1222 PO (11:17)
[2017-07-31] MEDS ORDERED: FERR325T5 PO (11:18)
[2017-07-31] MEDS ORDERED: IBUP-1223 PO (11:28)
[2017-07-31 13:58] VITALS: BP 124/70
[2017-07-31 19:27] VITALS: BP 136/86
[2017-07-31] MEDS: OXYcodone IR 5MG TABLET PO PRN (20:16)
[2017-07-31] MEDS: PROMETHAZINE 25MG TABLET PO PRN (20:16)
[2017-08-01] MEDS: ACETAMINOPHEN 325 MG TABLET PO PRN ×3 (03:53→16:27)
[2017-08-01] MEDS: FLUTICASONE/VILANTEROL 200-25MCG/INH INH SCH (07:45)
[2017-08-01] MEDS: RISPERIDONE 1 MG TABLET PO SCH ×2 (07:46→20:30)
[2017-08-01] MEDS: FERROUS SULFATE 325 MG TABLET PO SCH ×2 (07:46→17:05)
[2017-08-01] MEDS: MAGNESIUM CHLORIDE 64 MG TABLET.DR PO SCH ×3 (07:46→20:30)
[2017-08-01] MEDS: NITROFURANTOIN (MACROBID) 100 MG CAPSULE PO SCH ×2 (07:46→20:31)
[2017-08-01] MEDS: PRENATAL VIT/IRON/FA 1 EACH TABLET PO SCH (07:46)
[2017-08-01 08:09] VITALS: BP 148/86
[2017-08-01] MEDS: FLUTICASONE NASAL SPRAY 16GM NAS SCH (09:30)
[2017-08-01] MEDS: OXYcodone/APAP 5/325MG TABLET PO PRN (11:51)
[2017-08-01] MEDS: DIPHENHYDRAMINE 25 MG CAPSULE PO PRN ×2 (12:39→22:01)
[2017-08-01] MEDS: IBUPROFEN 600 MG TABLET PO PRN ×2 (12:42→18:23)
[2017-08-01 20:01] VITALS: BP 125/84
[2017-08-01] MEDS: OXYcodone IR 5MG TABLET PO PRN (20:31)
[2017-08-02] MEDS ORDERED: IBUPROFEN 200 MG TABLET ONE (02:33)
[2017-08-02] MEDS: IBUPROFEN 600 MG TABLET PO PRN (02:37)
[2017-08-02] MEDS: FERROUS SULFATE 325 MG TABLET PO SCH (08:01)
[2017-08-02] MEDS: OXYcodone/APAP 5/325MG TABLET PO PRN (08:01)
[2017-08-02 08:22] VITALS: BP 122/81
[2017-08-02] MEDS: PRENATAL VIT/IRON/FA 1 EACH TABLET PO SCH (08:41)
[2017-08-02] MEDS: MAGNESIUM CHLORIDE 64 MG TABLET.DR PO SCH (08:41)
[2017-08-02] MEDS: RISPERIDONE 1 MG TABLET PO SCH (08:41)
[2017-08-02] MEDS: NITROFURANTOIN (MACROBID) 100 MG CAPSULE PO SCH (08:41)
[2017-08-02] MEDS: DIPHENHYDRAMINE 25 MG CAPSULE PO PRN (08:41)
[2017-08-02] MEDS: FLUTICASONE/VILANTEROL 200-25MCG/INH INH SCH (08:42)
[2017-08-02] MEDS: FLUTICASONE NASAL SPRAY 16GM NAS SCH (08:42)
[2017-08-02] MEDS: ACETAMINOPHEN 325 MG TABLET PO PRN (11:44)
== END 2017-08-02 15:00 | DRG 765 ==
LOC: ED 10:40 → EDIP 11:53 → 3NE 18:13 → 3E 07-26 18:27 → LDIP 07-28 12:00 → 2NW 07-28 16:45 → 3E 07-31 13:00
PROVIDERS: ADMIT Obstetrics & Gynecology; ATTEND Obstetrics & Gynecology
PROC: 10D00Z1 Extraction of Products of Conception, Low, Open Approach (ICD-10-PCS; principal; 2017-07-28)
DX: O40.3XX0 Polyhydramnios, third trimester, not applicable or unspecified (principal); O75.3 Other infection during labor; R45.851 Suicidal ideations; N39.0 Urinary tract infection, site not specified; O98.42 Viral hepatitis complicating childbirth; O99.354 Diseases of the nervous system complicating childbirth; F15.20 Other stimulant dependence, uncomplicated; O99.324 Drug use complicating childbirth; E83.42 Hypomagnesemia; F20.9 Schizophrenia, unspecified; F22 Delusional disorders; G43.909 Migraine, unspecified, not intractable, without status migrainosus; J45.909 Unspecified asthma, uncomplicated; O99.284 Endocrine, nutritional and metabolic diseases complicating childbirth; O35.9XX0 Maternal care for (suspected) fetal abnormality and damage, unspecified, not applicable or unspecified; O99.52 Diseases of the respiratory system complicating childbirth; O99.344 Other mental disorders complicating childbirth; O99.334 Smoking (tobacco) complicating childbirth; F17.210 Nicotine dependence, cigarettes, uncomplicated; O99.314 Alcohol use complicating childbirth; F10.10 Alcohol abuse, uncomplicated; F43.10 Post-traumatic stress disorder, unspecified; F32.9 Major depressive disorder, single episode, unspecified; B18.2 Chronic viral hepatitis C; Z3A.39 39 weeks gestation of pregnancy; Z37.0 Single live birth; Z79.899 Other long term (current) drug therapy; Z81.8 Family history of other mental and behavioral disorders; Z91.14 Patient's other noncompliance with medication regimen; Z91.5 Personal history of self-harm; Z80.8 Family history of malignant neoplasm of other organs or systems; O90.81 Anemia of the puerperium; D64.9 Anemia, unspecified; Q75.3 Macrocephaly; Z88.0 Allergy status to penicillin; Z88.2 Allergy status to sulfonamides; Z88.8 Allergy status to other drugs, medicaments and biological substances
CPT/HCPCS: 36415; 76805; 76819; 80048; 80053; 80061; 80307; 80329; 81001; 82803; 82962; 83036; 83735; 84439; 84443; 85025; 86703; 86706; 86803; 86850; 86900; 87086; 87340; 87521; 87899; 93005; 99285; J0690; J1885; J2274; J2405; Q0169; G0435; G0479; G0480; J2370; J2765; J7030; J7120; Q0163

== ENCOUNTER 2018-07-31 18:06 | Emergency (ER) | payer MEDICARE, MEDICAID ==
[~2018-07-31] VITALS: Ht 162.6 cm; Wt 70.3 kg
[~2018-07-31 18:06] MED LIST changes: +ALBU18HF INH; +DIPH25TA65 PO; +FERR325T5 PO; +FLUT1AER INH; +HYDR50CA PO; +IBUP-1222 PO; +IBUP-1223 PO; +PRENATAL PO; +RISP4TAB2 PO; +TOPI25CA5 PO; +TRAZ-137 PO; -TRAZ100T15 PO
[2018-07-31 18:10] VITALS: BP 101/66
[2018-07-31 18:49] LABS: MICROSCOPIC AUTO
[2018-07-31] MEDS ORDERED: ARIP400S INJ (19:02)
[2018-07-31 19:03] LABS: HCG UR SG 1.011 (1.003-1.030)
[2018-07-31] MEDS ORDERED: PALI39DI INJ (19:03)
[2018-07-31] MEDS ORDERED: ESCI20TA10 PO (19:04)
[2018-07-31] MEDS ORDERED: PROP40TA PO (19:06)
[2018-07-31 19:12] LABS: BASOPHILS # (AUTO) 0.05 x10^3/uL (0-0.1); BASOPHILS % (AUTO) 1 % (0-1); EOSINOPHILS # (AUTO) 0.34 x10^3/uL (0-0.4); EOSINOPHILS % (AUTO) 5 % (1-7); LYMPHOCYTES # (AUTO) 2.75 x10^3/uL (1-3.4); LYMPHOCYTES % (AUTO) 38 % (22-44); MD NO; MEAN CORPUSCULAR HEMOGLOBIN 29.7 pg (27.0-34.8); MEAN CORPUSCULAR VOLUME 87.5 fL (80-100); MEAN PLATELET VOLUME 8.1 fL (7.4-10.4); MONOCYTES # (AUTO) 0.73 x10^3/uL (0.2-0.8); MONOCYTES % (AUTO) 10 % (2-9); NEUTROPHILS # (AUTO) 3.34 x10^3/uL (1.8-6.8); NEUTROPHILS % (AUTO) 46 % (42-75); PLATELET COUNT 230 x10^3/uL (130-400); RED BLOOD COUNT 4.19 x10^6/uL (3.82-5.3); RED CELL DISTRIBUTION WIDTH 14.1 % (9.6-15.2)
[2018-07-31 19:23] LABS: ALANINE AMINOTRANSFERASE 12 U/L (12-78); ALBUMIN 3.4 g/dL (3.4-5.0); ANION GAP 8 mmol/L (5-15); BILIRUBIN, DIRECT 0.2 mg/dL (0.1-0.2); CALCIUM 8.3 mg/dL (8.5-10.1); CHLORIDE 108 mmol/L (98-107)
[2018-07-31 19:25] LABS: ALKALINE PHOSPHATASE 57 U/L (45-117); BILIRUBIN,INDIRECT 0.1 mg/dL (0.0-2.0); BILIRUBIN,TOTAL 0.3 mg/dL (0.2-1.0); TOTAL PROTEIN 6.9 g/dL (6.4-8.2)
[2018-07-31] MEDS ORDERED: ONDANSETRON ODT 8 MG ONE (19:57)
[2018-07-31] MEDS ORDERED: KETOROLAC 30 MG/1 ML ONE (19:57)
[2018-07-31] MEDS ORDERED: CEFDINIR 300 MG CAPSULE ONE (19:57)
[2018-07-31] MEDS ORDERED: KETOROLAC 30 MG/1 ML IM ONE (20:00)
[2018-07-31] MEDS ORDERED: ONDANSETRON ODT 8 MG PO ONE (20:00)
[2018-07-31] MEDS ORDERED: CEFDINIR 300 MG CAPSULE PO ONE (20:00)
== END 2018-07-31 20:13 | disposition home or self-care (01) ==
LOC: ED 20:07
DX: N10 Acute pyelonephritis (principal); F17.200 Nicotine dependence, unspecified, uncomplicated; G43.909 Migraine, unspecified, not intractable, without status migrainosus
CPT/HCPCS: 36415; 74176; 80048; 80076; 81001; 81025; 83690; 85025; 96372; 99284; J1885; Q0162

== ENCOUNTER 2018-08-03 18:14 | Observation (INO) | payer MEDICARE, MEDICAID ==
[~2018-08-03] VITALS: Ht 162.6 cm; Wt 69.1 kg
[~2018-08-03 18:14] MED LIST changes: +ESCI20TA10 PO; +PALI39DI INJ; +PROP40TA PO
[2018-08-03 18:57] LABS: BASOPHILS # (AUTO) 0.06 x10^3/uL (0-0.1); BASOPHILS % (AUTO) 1 % (0-1); EOSINOPHILS # (AUTO) 0.29 x10^3/uL (0-0.4); EOSINOPHILS % (AUTO) 4 % (1-7); LYMPHOCYTES # (AUTO) 3.26 x10^3/uL (1-3.4); LYMPHOCYTES % (AUTO) 43 % (22-44); MD NO; MEAN CORPUSCULAR HEMOGLOBIN 29.2 pg (27.0-34.8); MEAN CORPUSCULAR HGB CONC 33.2 g/dL (32.4-35.8); MEAN CORPUSCULAR VOLUME 87.8 fL (80-100); MEAN PLATELET VOLUME 8.2 fL (7.4-10.4); MONOCYTES # (AUTO) 0.57 x10^3/uL (0.2-0.8); MONOCYTES % (AUTO) 8 % (2-9); NEUTROPHILS # (AUTO) 3.38 x10^3/uL (1.8-6.8); NEUTROPHILS % (AUTO) 45 % (42-75); PLATELET COUNT 262 x10^3/uL (130-400); RED BLOOD COUNT 4.51 x10^6/uL (3.82-5.3); RED CELL DISTRIBUTION WIDTH 13.9 % (9.6-15.2)
[2018-08-03 19:07] LABS: ALANINE AMINOTRANSFERASE 15 U/L (12-78); ALBUMIN 3.9 g/dL (3.4-5.0); ANION GAP 7 mmol/L (5-15); CALCIUM 8.4 mg/dL (8.5-10.1); CHLORIDE 108 mmol/L (98-107)
[2018-08-03 19:10] LABS: ALKALINE PHOSPHATASE 63 U/L (45-117); BILIRUBIN,TOTAL 0.4 mg/dL (0.2-1.0); CREATININE 0.77 mg/dL (0.55-1.02); TOTAL PROTEIN 7.8 g/dL (6.4-8.2)
[2018-08-03 19:13] LABS: ACETAMINOPHEN < 2 mcg/mL (10-30)
[2018-08-03 19:38] LABS: AMPHETAMINE SCREEN, URINE Positive (Negative); BARBITURATE SCREEN, URINE Negative (Negative); BENZODIAZEPINE SCREEN, URINE Negative (Negative); CANNABINOID SCREEN, URINE Positive (Negative); COCAINE SCREEN, URINE Negative (Negative); METHADONE SCREEN, URINE Negative (Negative); OPIATE SCREEN, URINE Negative (Negative)
[2018-08-03] MEDS ORDERED: IBUPROFEN 600 MG TABLET ONE (20:21)
[2018-08-03 20:28] LABS: CULTURE INDICATED? YES; MICROSCOPIC AUTO
[2018-08-03] MEDS: IBUPROFEN 200 MG TABLET PO ONE ×2 (20:30→22:04)
[2018-08-03] MEDS ORDERED: IBUPROFEN 200 MG TABLET PO ONE (20:30)
[2018-08-03] MEDS ORDERED: NICOTINE 21 MG/24 HR PATCH.TD24 TD ONE (21:30)
[2018-08-03] MEDS ORDERED: ONDANSETRON ODT 4 MG PO PRN (21:30)
[2018-08-03] MEDS ORDERED: POLYETHYLENE GLYCOL 17 GM PACKET PO PRN (21:30)
[2018-08-03 21:48] VITALS: BP 100/65
[2018-08-04 07:52] VITALS: BP 101/65
[2018-08-04] MEDS ORDERED: CEFDINIR 300 MG CAPSULE PO SCH (09:00)
[2018-08-04] MEDS: CEFDINIR 300 MG CAPSULE PO SCH ×2 (09:24→21:00)
[2018-08-04] MEDS: ACETAMINOPHEN 325 MG TABLET PO PRN ×2 (09:25→16:45)
[2018-08-04 20:12] VITALS: BP 113/74
[2018-08-05 08:12] VITALS: BP 105/67
[2018-08-05] MEDS: CEFDINIR 300 MG CAPSULE PO SCH ×2 (09:03→20:20)
[2018-08-05] MEDS: CITALOPRAM 20 MG TABLET PO SCH (09:03)
[2018-08-05] MEDS: ACETAMINOPHEN 325 MG TABLET PO PRN ×2 (09:04→15:19)
[2018-08-05] MEDS: NICOTINE 14MG/24 HR PATCH.TD24 TD SCH (17:41)
[2018-08-05] MEDS: OXYMETAZOLINE NASAL SPRAY 0.05%, 15ML NAS PRN (17:42)
[2018-08-05 19:26] VITALS: BP 108/61
[2018-08-06 08:30] VITALS: BP 107/69
[2018-08-06] MEDS: CEFDINIR 300 MG CAPSULE PO SCH ×2 (09:33→21:32)
[2018-08-06] MEDS: CITALOPRAM 20 MG TABLET PO SCH (09:34)
[2018-08-06] MEDS: ACETAMINOPHEN 325 MG TABLET PO PRN (10:32)
[2018-08-06] MEDS: NICOTINE 14MG/24 HR PATCH.TD24 TD SCH (15:35)
[2018-08-06] MEDS: OXYMETAZOLINE NASAL SPRAY 0.05%, 15ML NAS PRN (16:10)
[2018-08-06 20:40] VITALS: BP 104/67
[2018-08-07 08:13] VITALS: BP 102/45
[2018-08-07] MEDS: CITALOPRAM 20 MG TABLET PO SCH (08:38)
[2018-08-07] MEDS: CEFDINIR 300 MG CAPSULE PO SCH ×2 (08:39→19:57)
[2018-08-07] MEDS: ACETAMINOPHEN 325 MG TABLET PO PRN ×2 (12:38→17:08)
[2018-08-07] MEDS: LEVOFLOXACIN 250 MG TABLET PO SCH (16:06)
[2018-08-07 17:05] VITALS: BP 115/83
[2018-08-07] MEDS: PROPRANOLOL 10 MG TABLET PO PRN (17:05)
[2018-08-07] MEDS: NICOTINE 14MG/24 HR PATCH.TD24 TD SCH (18:07)
[2018-08-07 20:21] VITALS: BP 98/62
[2018-08-08 08:10] VITALS: BP 121/76
[2018-08-08] MEDS: CITALOPRAM 20 MG TABLET PO SCH (08:50)
[2018-08-08] MEDS ORDERED: FLUTICASONE/VILANTEROL 100-25MCG/INH INH SCH (10:30)
[2018-08-08] MEDS: BUDESONIDE 0.5 MG/2 ML INHA HHN SCH ×2 (10:30→20:26)
[2018-08-08] MEDS: ALBUTEROL SULFATE 2.5 MG/3 ML HHN SCH ×3 (10:30→20:26)
[2018-08-08] MEDS: ACETAMINOPHEN 325 MG TABLET PO PRN ×3 (11:02→22:21)
[2018-08-08] MEDS: OXYMETAZOLINE NASAL SPRAY 0.05%, 15ML NAS PRN (12:16)
[2018-08-08] MEDS: LEVOFLOXACIN 250 MG TABLET PO SCH (15:30)
[2018-08-08] MEDS: NICOTINE 14MG/24 HR PATCH.TD24 TD SCH (17:33)
[2018-08-08 19:58] VITALS: BP 108/72
[2018-08-09] MEDS: ALBUTEROL SULFATE 2.5 MG/3 ML HHN SCH ×4 (03:23→22:25)
[2018-08-09 07:26] VITALS: BP 96/57
[2018-08-09] MEDS: CITALOPRAM 20 MG TABLET PO SCH (08:32)
[2018-08-09] MEDS: BUDESONIDE 0.5 MG/2 ML INHA HHN SCH ×2 (10:30→21:00)
[2018-08-09] MEDS: ACETAMINOPHEN 325 MG TABLET PO PRN ×2 (16:06→20:15)
[2018-08-09] MEDS: LEVOFLOXACIN 250 MG TABLET PO SCH (16:08)
[2018-08-09] MEDS: NICOTINE 14MG/24 HR PATCH.TD24 TD SCH (18:01)
[2018-08-09] MEDS ORDERED: ALBUTEROL SULFATE 2.5 MG/3 ML HHN SCH (20:00)
[2018-08-09 20:05] VITALS: BP 103/67
[2018-08-10] MEDS: ACETAMINOPHEN 325 MG TABLET PO PRN ×4 (02:18→22:04)
[2018-08-10] MEDS: CITALOPRAM 20 MG TABLET PO SCH (08:39)
[2018-08-10 08:50] VITALS: BP 114/69
[2018-08-10] MEDS: ALBUTEROL SULFATE 2.5 MG/3 ML HHN SCH ×3 (09:00→21:02)
[2018-08-10] MEDS: BUDESONIDE 0.5 MG/2 ML INHA HHN SCH ×2 (09:00→21:02)
[2018-08-10] MEDS: NICOTINE 14MG/24 HR PATCH.TD24 TD SCH (18:01)
[2018-08-10 20:00] VITALS: BP 102/65
[2018-08-11] MEDS: ALBUTEROL SULFATE 2.5 MG/3 ML HHN SCH ×4 (02:32→19:05)
[2018-08-11 07:28] VITALS: BP 92/51
[2018-08-11] MEDS: BUDESONIDE 0.5 MG/2 ML INHA HHN SCH ×2 (09:00→19:05)
[2018-08-11] MEDS: CITALOPRAM 20 MG TABLET PO SCH (09:03)
[2018-08-11] MEDS: ACETAMINOPHEN 325 MG TABLET PO PRN ×2 (13:17→21:10)
[2018-08-11] MEDS: NICOTINE 14MG/24 HR PATCH.TD24 TD SCH (18:05)
[2018-08-11 19:34] VITALS: BP 97/63
[2018-08-11] MEDS: PROPRANOLOL 10 MG TABLET PO PRN (22:11)
[2018-08-12] MEDS: ALBUTEROL SULFATE 2.5 MG/3 ML HHN SCH ×4 (03:00→21:00)
[2018-08-12] MEDS: CITALOPRAM 20 MG TABLET PO SCH (08:22)
[2018-08-12] MEDS: ACETAMINOPHEN 325 MG TABLET PO PRN ×2 (08:23→18:40)
[2018-08-12 08:30] VITALS: BP 97/61
[2018-08-12] MEDS: BUDESONIDE 0.5 MG/2 ML INHA HHN SCH ×2 (08:47→21:00)
[2018-08-12] MEDS: NICOTINE 14MG/24 HR PATCH.TD24 TD SCH (18:36)
[2018-08-12 19:45] VITALS: BP 105/69
== END 2018-08-13 02:30 ==
LOC: ED 20:08 → SUATTDRO 21:00 → EDIP 21:06 → INTOOBSV 21:06 → 2N 21:31
PROVIDERS: ADMIT Hospitalist; ATTEND Hospitalist
DX: R45.851 Suicidal ideations (principal); F25.0 Schizoaffective disorder, bipolar type; F43.10 Post-traumatic stress disorder, unspecified; F17.210 Nicotine dependence, cigarettes, uncomplicated; J06.9 Acute upper respiratory infection, unspecified; J45.909 Unspecified asthma, uncomplicated; N39.0 Urinary tract infection, site not specified
CPT/HCPCS: 36415; 80053; 80307; 81001; 81025; 85025; 87086; 94640; 99284; G0378; J7613; J7626; Q0177

== ENCOUNTER 2018-09-19 01:22 | Observation (INO) | payer MEDICARE, MEDICAID ==
[~2018-09-19] VITALS: Ht 162.6 cm; Wt 71.0 kg
--- NOTE | 2018-09-19 01:58 | NUR ---
called rpd per pt request
[2018-09-19] MEDS ORDERED: DIPH,PERTUSS(ACELL),TET VAC/PF 0.5 ML IM-VACC ONE ×2 (02:00→02:17)
--- NOTE | 2018-09-19 02:28 | NUR ---
RPD AT PT'S BEDSIDE
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
--- NOTE | 2018-09-19 03:19 | NUR ---
PT RESTING ON GUREAST AMHERST, ROOM SECURED, SITTER AT DOORWAY FOR CONTINOUS MONITORING.
[2018-09-19 03:29] LABS: AMPHETAMINE SCREEN, URINE Positive (Negative); BARBITURATE SCREEN, URINE Negative (Negative); BENZODIAZEPINE SCREEN, URINE Negative (Negative); CANNABINOID SCREEN, URINE Positive (Negative); COCAINE SCREEN, URINE Negative (Negative); METHADONE SCREEN, URINE Negative (Negative); OPIATE SCREEN, URINE Negative (Negative)
[2018-09-19 03:41] LABS: BASOPHILS # (AUTO) 0.04 x10^3/uL (0-0.1); BASOPHILS % (AUTO) 1 % (0-1); EOSINOPHILS # (AUTO) 0.22 x10^3/uL (0-0.4); EOSINOPHILS % (AUTO) 3 % (1-7); LYMPHOCYTES # (AUTO) 2.66 x10^3/uL (1-3.4); LYMPHOCYTES % (AUTO) 38 % (22-44); MD NO; MEAN CORPUSCULAR HGB CONC 33.5 g/dL (32.4-35.8); MEAN CORPUSCULAR VOLUME 86.7 fL (80-100); MEAN PLATELET VOLUME 7.4 fL (7.4-10.4); MONOCYTES # (AUTO) 0.49 x10^3/uL (0.2-0.8); MONOCYTES % (AUTO) 7 % (2-9); NEUTROPHILS # (AUTO) 3.56 x10^3/uL (1.8-6.8); NEUTROPHILS % (AUTO) 51 % (42-75); PLATELET COUNT 288 x10^3/uL (130-400); RED BLOOD COUNT 4.54 x10^6/uL (3.82-5.3); RED CELL DISTRIBUTION WIDTH 14.1 % (9.6-15.2)
[2018-09-19 03:49] LABS: ALANINE AMINOTRANSFERASE 13 U/L (12-78); ALBUMIN 3.8 g/dL (3.4-5.0); ANION GAP 11 mmol/L (5-15); CALCIUM 8.4 mg/dL (8.5-10.1); CHLORIDE 107 mmol/L (98-107); CREATININE 0.63 mg/dL (0.55-1.02); SALICYLATE LEVEL 5.2 mg/dL (2.8-20.0)
[2018-09-19 03:53] LABS: ALKALINE PHOSPHATASE 60 U/L (45-117); BILIRUBIN,TOTAL 0.3 mg/dL (0.2-1.0); TOTAL PROTEIN 7.4 g/dL (6.4-8.2)
[2018-09-19 03:54] LABS: ACETAMINOPHEN < 2 mcg/mL (10-30)
--- NOTE | 2018-09-19 04:12 | NUR ---
PT RESTING ON GURNEY, DENIES NEEDS AT THIS TIME, ROOM REMAINS SECURED, SITTER AT DOORWAY FOR CONTINOUS MONITORING.
--- NOTE | 2018-09-19 05:02 | NUR ---
PT RESTING ON GURNEY WITH EYES CLOSED, NADN, EQUAL CHEST RISE/FALL OBSERVED, SITTER AT DOORWAY FOR CONTINOUS MONITORING.
--- NOTE | 2018-09-19 06:01 | NUR ---
PT RESTING ON GURNEY WITH EYES CLOSED, NADN, EQUAL CHEST RISE/FALL OBSERVED, SITTER AT DOORWAY FOR CONTINOUS MONITORING.
--- NOTE | 2018-09-19 06:11 | NUR ---
SOC ON TELEPHONE, UPDATES GIVEN ON PT STATUS, VS.
--- NOTE | 2018-09-19 07:06 | NUR ---
REPORT GIVEN TO TISHA BAY
--- NOTE | 2018-09-19 07:14 | NUR ---
REPORT FROM INOCENCIO GILES
--- NOTE | 2018-09-19 07:35 | NUR ---
PT IN ROOM. ROOM SECURE. PT RESTING WITH RESPS EVEN AND UNLABORED.
--- NOTE | 2018-09-19 07:40 | NUR ---
SITTER IN HALLWAY. BAG OF BELONGINGS IN DECON ROOM.
[2018-09-19] MEDS ORDERED: ARIPIPRAZOLE INJ SCH (09:30)
[2018-09-19] MEDS ORDERED: LORazepam 2 MG/ML, 1ML IM PRN (09:30)
--- NOTE | 2018-09-19 09:30 | NUR ---
LAB CALLED REGARDING DUPLICATE TEST. ORIGINAL TEST DONE EARLY AM. CANCELLED DUPLICATE
--- NOTE | 2018-09-19 09:34 | NUR ---
LATE ENTRY FOR 0900 THROUGHPUT: ALL INFO FAXED TO [facility], BILL DAVIS, [facility], [facility].
--- NOTE | 2018-09-19 09:34 | NUR ---
LATE ENTRY 0930 RECEIVED A CALL FROM DAVID AT [facility]. PT HAS ZERO LIFETIME DAYS LEFT ON MEDICARE. PT CAN BE ACCEPTED ON SELF PAY.
--- NOTE | 2018-09-19 09:38 | NUR ---
INFORMED FROM THROUGHPUT THAT PT CAN ONLY BE ACCEPTED TO [facility] IF SHE PLANS TO SELF-PAY. PT INFORMED OF THIS OPTION AND STATES SHE HAS NO ABILITY TO SELF-PAY.
--- NOTE | 2018-09-19 09:49 | NUR ---
PT RESTING IN BED. RESPS EVEN AND UNLABORED. PT CONSUMED HALF OF BREAKFAST TRAY.
[2018-09-19] MEDS ORDERED: NICOTINE 21 MG/24 HR PATCH.TD24 ONE (09:58)
[2018-09-19] MEDS ORDERED: hydrOXyzine 50MG TABLET ONE (09:59)
[2018-09-19] MEDS: HYDROXYZINE PAMOATE 50MG CAP PO SCH ×3 (10:05→20:16)
[2018-09-19] MEDS: NICOTINE 21 MG/24 HR PATCH.TD24 TD SCH (10:06)
--- NOTE | 2018-09-19 10:16 | NUR ---
THROUGHPUT: SPOKE WITH [facility]. PT EXPECTED TO GO TO THEM AROUND NOON
--- NOTE | 2018-09-19 10:33 | NUR ---
PT RESTING AT THIS TIME. RESPS EVEN AND UNALABORED. PT EXPRESSES NO WANTS OR NEEDS AT THIS TIME.
--- NOTE | 2018-09-19 12:44 | NUR ---
LUNCH TRAY PROVIDED PT RESTING IN ROOM. ROOM SECURE AND SITTER AT SIDE.
[2018-09-19 14:30] VITALS: BP 95/61
[2018-09-19] MEDS: ACETAMINOPHEN 325 MG TABLET PO PRN (19:27)
[2018-09-19 20:02] VITALS: BP 91/59
[2018-09-19] MEDS: SIMVASTATIN 20 MG TABLET PO SCH (20:16)
[2018-09-20 06:05] LABS: BASOPHILS # (AUTO) 0.06 x10^3/uL (0-0.1); BASOPHILS % (AUTO) 1 % (0-1); EOSINOPHILS # (AUTO) 0.46 x10^3/uL (0-0.4); EOSINOPHILS % (AUTO) 6 % (1-7); LYMPHOCYTES % (AUTO) 39 % (22-44); MD NO; MEAN CORPUSCULAR HEMOGLOBIN 29.4 pg (27.0-34.8); MEAN CORPUSCULAR HGB CONC 33.6 g/dL (32.4-35.8); MEAN CORPUSCULAR VOLUME 87.6 fL (80-100); MEAN PLATELET VOLUME 7.7 fL (7.4-10.4); MONOCYTES # (AUTO) 0.73 x10^3/uL (0.2-0.8); MONOCYTES % (AUTO) 10 % (2-9); NEUTROPHILS # (AUTO) 3.41 x10^3/uL (1.8-6.8); NEUTROPHILS % (AUTO) 45 % (42-75); PLATELET COUNT 248 x10^3/uL (130-400); RED BLOOD COUNT 4.86 x10^6/uL (3.82-5.3); RED CELL DISTRIBUTION WIDTH 14.1 % (9.6-15.2)
[2018-09-20 06:20] LABS: ANION GAP 7 mmol/L (5-15); CALCIUM 8.5 mg/dL (8.5-10.1); CHLORIDE 109 mmol/L (98-107)
[2018-09-20 06:23] LABS: CREATININE 0.64 mg/dL (0.55-1.02)
[2018-09-20 07:43] VITALS: BP 102/56
[2018-09-20] MEDS: HYDROXYZINE PAMOATE 50MG CAP PO SCH ×3 (10:13→19:53)
[2018-09-20] MEDS: NICOTINE 21 MG/24 HR PATCH.TD24 TD SCH (17:01)
[2018-09-20 19:24] VITALS: BP 99/68
[2018-09-20] MEDS: SIMVASTATIN 20 MG TABLET PO SCH (19:54)
[2018-09-21 07:28] VITALS: BP 96/62
[2018-09-21] MEDS: HYDROXYZINE PAMOATE 50MG CAP PO SCH ×3 (08:34→20:48)
[2018-09-21] MEDS: NICOTINE 21 MG/24 HR PATCH.TD24 TD SCH (16:40)
[2018-09-21 19:50] VITALS: BP 103/71
[2018-09-21] MEDS: SIMVASTATIN 20 MG TABLET PO SCH (20:48)
[2018-09-21] MEDS: BACLOFEN 10 MG TABLET PO PRN (22:26)
[2018-09-21] MEDS: LORazepam 1MG TABLET PO PRN (22:38)
[2018-09-22 07:26] VITALS: BP 87/59
[2018-09-22] MEDS: HYDROXYZINE PAMOATE 50MG CAP PO SCH ×3 (08:19→20:25)
[2018-09-22] MEDS: CITALOPRAM 20 MG TABLET PO SCH (08:19)
[2018-09-22 08:24] VITALS: BP 103/69
[2018-09-22] MEDS: NICOTINE 21 MG/24 HR PATCH.TD24 TD SCH (10:08)
[2018-09-22 19:48] VITALS: BP 89/64
[2018-09-22] MEDS: SIMVASTATIN 20 MG TABLET PO SCH (20:25)
[2018-09-22] MEDS: LORazepam 1MG TABLET PO PRN (20:26)
[2018-09-23] MEDS: NICOTINE 21 MG/24 HR PATCH.TD24 TD SCH (07:47)
[2018-09-23] MEDS: HYDROXYZINE PAMOATE 50MG CAP PO SCH ×3 (07:47→20:12)
[2018-09-23] MEDS: CITALOPRAM 20 MG TABLET PO SCH (07:48)
[2018-09-23 08:00] VITALS: BP 93/65
[2018-09-23 19:59] VITALS: BP 99/64
[2018-09-23] MEDS: SIMVASTATIN 20 MG TABLET PO SCH (20:12)
[2018-09-23] MEDS: LORazepam 1MG TABLET PO PRN (20:55)
[2018-09-24 08:00] VITALS: BP 90/59
[2018-09-24] MEDS: CITALOPRAM 20 MG TABLET PO SCH ×3 (08:34→11:57)
[2018-09-24] MEDS: HYDROXYZINE PAMOATE 50MG CAP PO SCH ×5 (08:34→20:42)
[2018-09-24] MEDS: NICOTINE 21 MG/24 HR PATCH.TD24 TD SCH (08:40)
[2018-09-24 10:34] VITALS: BP 99/65
[2018-09-24 19:44] VITALS: BP 95/67
[2018-09-24] MEDS: SIMVASTATIN 20 MG TABLET PO SCH (20:43)
[2018-09-25 08:15] VITALS: BP 95/68
[2018-09-25] MEDS: HYDROXYZINE PAMOATE 50MG CAP PO SCH ×3 (08:16→17:58)
[2018-09-25] MEDS: NICOTINE 21 MG/24 HR PATCH.TD24 TD SCH (08:16)
[2018-09-25] MEDS: CITALOPRAM 20 MG TABLET PO SCH (08:16)
[2018-09-25 16:19] VITALS: BP 92/66
[2018-09-25 20:01] VITALS: BP 107/72
[2018-09-25] MEDS: SIMVASTATIN 20 MG TABLET PO SCH (20:46)
[2018-09-26] MEDS: HYDROXYZINE PAMOATE 50MG CAP PO SCH ×4 (00:12→20:43)
[2018-09-26 07:33] VITALS: BP 102/69
[2018-09-26] MEDS: CITALOPRAM 20 MG TABLET PO SCH (08:41)
[2018-09-26] MEDS: NICOTINE 21 MG/24 HR PATCH.TD24 TD SCH (08:42)
[2018-09-26] MEDS: ACETAMINOPHEN 325 MG TABLET PO PRN ×2 (15:33→21:23)
[2018-09-26] MEDS ORDERED: BUDESONIDE 0.5 MG/2 ML INHA ONE (16:34)
[2018-09-26] MEDS ORDERED: ALBUTEROL SULFATE 2.5 MG/3 ML ONE (16:34)
[2018-09-26 20:07] VITALS: BP 87/49
[2018-09-26] MEDS: SIMVASTATIN 20 MG TABLET PO SCH (20:43)
[2018-09-26] MEDS: ALBUTEROL SULFATE 2.5 MG/3 ML NPPB SCH (20:45)
[2018-09-26] MEDS: BUDESONIDE 0.5 MG/2 ML INHA INH SCH (20:45)
[2018-09-26 21:30] VITALS: BP 104/67
[2018-09-26] MEDS: MELATONIN 3 MG TABLET PO PRN (22:09)
[2018-09-26] MEDS: LORazepam 1MG TABLET PO PRN (23:29)
[2018-09-27] MEDS: ALBUTEROL SULFATE 2.5 MG/3 ML NPPB SCH ×4 (03:00→18:52)
[2018-09-27 07:31] VITALS: BP 104/68
[2018-09-27] MEDS: BUDESONIDE 0.5 MG/2 ML INHA INH SCH ×2 (07:40→18:52)
[2018-09-27] MEDS: CITALOPRAM 20 MG TABLET PO SCH (09:19)
[2018-09-27] MEDS: HYDROXYZINE PAMOATE 50MG CAP PO SCH ×2 (09:21→20:05)
[2018-09-27] MEDS: ACETAMINOPHEN 325 MG TABLET PO PRN ×2 (09:22→18:23)
[2018-09-27] MEDS: NICOTINE 21 MG/24 HR PATCH.TD24 TD SCH (17:08)
[2018-09-27 19:17] VITALS: BP 103/67
[2018-09-27] MEDS: BACLOFEN 10 MG TABLET PO PRN (20:05)
[2018-09-27] MEDS: SIMVASTATIN 20 MG TABLET PO SCH (20:05)
[2018-09-27] MEDS: LORazepam 1MG TABLET PO PRN (21:13)
[2018-09-28] MEDS: ONDANSETRON ODT 4 MG PO PRN (01:04)
[2018-09-28] MEDS: ALBUTEROL SULFATE 2.5 MG/3 ML NPPB SCH ×4 (02:12→20:00)
[2018-09-28] MEDS: HYDROXYZINE PAMOATE 50MG CAP PO SCH ×3 (08:08→20:19)
[2018-09-28] MEDS: CITALOPRAM 20 MG TABLET PO SCH (08:09)
[2018-09-28 08:10] VITALS: BP 98/63
[2018-09-28] MEDS: NICOTINE 21 MG/24 HR PATCH.TD24 TD SCH (08:16)
[2018-09-28] MEDS: BUDESONIDE 0.5 MG/2 ML INHA INH SCH ×2 (09:50→20:00)
[2018-09-28] MEDS: ACETAMINOPHEN 325 MG TABLET PO PRN (15:48)
[2018-09-28 19:23] VITALS: BP 97/63
[2018-09-28] MEDS: SIMVASTATIN 20 MG TABLET PO SCH (20:19)
[2018-09-28] MEDS: BACLOFEN 10 MG TABLET PO PRN (21:06)
[2018-09-28] MEDS: LORazepam 1MG TABLET PO PRN (22:22)
[2018-09-29] MEDS: ONDANSETRON ODT 4 MG PO PRN (01:20)
[2018-09-29] MEDS: ALBUTEROL SULFATE 2.5 MG/3 ML NPPB SCH ×5 (03:00→21:00)
[2018-09-29 08:00] VITALS: BP 101/69
[2018-09-29] MEDS: BUDESONIDE 0.5 MG/2 ML INHA INH SCH ×3 (09:00→21:00)
[2018-09-29] MEDS: NICOTINE 21 MG/24 HR PATCH.TD24 TD SCH (09:30)
[2018-09-29] MEDS: CITALOPRAM 20 MG TABLET PO SCH (11:46)
[2018-09-29] MEDS: HYDROXYZINE PAMOATE 50MG CAP PO SCH ×3 (11:46→20:07)
[2018-09-29 19:19] VITALS: BP 110/72
[2018-09-29] MEDS: SIMVASTATIN 20 MG TABLET PO SCH (20:07)
[2018-09-29] MEDS: LORazepam 1MG TABLET PO PRN (21:33)
[2018-09-29] MEDS: BACLOFEN 10 MG TABLET PO PRN (22:29)
[2018-09-30] MEDS: ALBUTEROL SULFATE 2.5 MG/3 ML NPPB SCH ×3 (03:00→20:20)
[2018-09-30 08:00] VITALS: BP 85/61
[2018-09-30] MEDS: NICOTINE 21 MG/24 HR PATCH.TD24 TD SCH (08:14)
[2018-09-30] MEDS: CITALOPRAM 20 MG TABLET PO SCH (08:15)
[2018-09-30] MEDS: HYDROXYZINE PAMOATE 50MG CAP PO SCH ×3 (08:15→20:01)
[2018-09-30] MEDS: BUDESONIDE 0.5 MG/2 ML INHA INH SCH ×2 (09:30→20:20)
[2018-09-30 14:34] VITALS: BP 120/80
[2018-09-30] MEDS: ACETAMINOPHEN 325 MG TABLET PO PRN (16:10)
[2018-09-30 19:06] VITALS: BP 94/63
[2018-09-30] MEDS: SIMVASTATIN 20 MG TABLET PO SCH (20:01)
[2018-09-30] MEDS: LORazepam 1MG TABLET PO PRN (20:01)
[2018-09-30] MEDS: BACLOFEN 10 MG TABLET PO PRN (21:57)
[2018-10-01 08:00] VITALS: BP 81/44
[2018-10-01] MEDS: HYDROXYZINE PAMOATE 50MG CAP PO SCH ×3 (08:42→19:58)
[2018-10-01] MEDS: CITALOPRAM 20 MG TABLET PO SCH (08:43)
[2018-10-01] MEDS: BUDESONIDE 0.5 MG/2 ML INHA INH SCH ×2 (10:56→21:00)
[2018-10-01] MEDS: ALBUTEROL SULFATE 2.5 MG/3 ML NPPB SCH ×2 (10:56→21:00)
[2018-10-01] MEDS: NICOTINE 21 MG/24 HR PATCH.TD24 TD SCH (17:34)
[2018-10-01 19:39] VITALS: BP 93/69
[2018-10-01] MEDS: LORazepam 1MG TABLET PO PRN (19:57)
[2018-10-01] MEDS: SIMVASTATIN 20 MG TABLET PO SCH (19:58)
[2018-10-02] MEDS: MELATONIN 3 MG TABLET PO PRN ×2 (00:43→21:07)
[2018-10-02 07:00] VITALS: BP 94/65
[2018-10-02] MEDS: CITALOPRAM 20 MG TABLET PO SCH (08:31)
[2018-10-02] MEDS: HYDROXYZINE PAMOATE 50MG CAP PO SCH ×3 (08:31→20:11)
[2018-10-02] MEDS: NICOTINE 21 MG/24 HR PATCH.TD24 TD SCH (08:34)
[2018-10-02] MEDS: ALBUTEROL SULFATE 2.5 MG/3 ML NPPB SCH ×2 (09:00→20:10)
[2018-10-02] MEDS: BUDESONIDE 0.5 MG/2 ML INHA INH SCH ×2 (09:00→20:10)
[2018-10-02] MEDS: ACETAMINOPHEN 325 MG TABLET PO PRN (15:50)
[2018-10-02] MEDS: LORazepam 1MG TABLET PO PRN (17:38)
[2018-10-02 19:22] VITALS: BP 101/68
[2018-10-02] MEDS: BACLOFEN 10 MG TABLET PO PRN (20:12)
[2018-10-02] MEDS: SIMVASTATIN 20 MG TABLET PO SCH (20:12)
[2018-10-03 07:43] VITALS: BP 130/81
[2018-10-03] MEDS: NICOTINE 21 MG/24 HR PATCH.TD24 TD SCH (08:51)
[2018-10-03] MEDS: CITALOPRAM 20 MG TABLET PO SCH (08:51)
[2018-10-03] MEDS: HYDROXYZINE PAMOATE 50MG CAP PO SCH ×3 (08:51→20:41)
[2018-10-03] MEDS: BUDESONIDE 0.5 MG/2 ML INHA INH SCH ×2 (09:05→21:00)
[2018-10-03] MEDS: ALBUTEROL SULFATE 2.5 MG/3 ML NPPB SCH ×2 (09:05→21:00)
[2018-10-03] MEDS: LORazepam 1MG TABLET PO PRN ×2 (14:11→21:34)
[2018-10-03 19:42] VITALS: BP 99/67
[2018-10-03] MEDS: SIMVASTATIN 20 MG TABLET PO SCH (20:42)
[2018-10-04] MEDS: MELATONIN 3 MG TABLET PO PRN ×2 (00:05→22:06)
[2018-10-04 08:00] VITALS: BP 99/66
[2018-10-04] MEDS: CITALOPRAM 20 MG TABLET PO SCH (08:25)
[2018-10-04] MEDS: HYDROXYZINE PAMOATE 50MG CAP PO SCH ×3 (08:32→21:08)
[2018-10-04] MEDS: ALBUTEROL SULFATE 2.5 MG/3 ML NPPB SCH ×2 (10:27→10:31)
[2018-10-04] MEDS: BUDESONIDE 0.5 MG/2 ML INHA INH SCH ×2 (10:27→10:31)
[2018-10-04] MEDS: NICOTINE 21 MG/24 HR PATCH.TD24 TD SCH (16:04)
[2018-10-04] MEDS: LORazepam 1MG TABLET PO PRN (18:18)
[2018-10-04 19:40] VITALS: BP 102/69
[2018-10-04] MEDS: ACETAMINOPHEN 325 MG TABLET PO PRN (19:55)
[2018-10-04] MEDS: SIMVASTATIN 20 MG TABLET PO SCH (21:08)
[2018-10-05] MEDS: LORazepam 1MG TABLET PO PRN (00:38)
[2018-10-05] MEDS: ACETAMINOPHEN 325 MG TABLET PO PRN (00:38)
[2018-10-05 07:32] VITALS: BP 105/75
[2018-10-05] MEDS: HYDROXYZINE PAMOATE 50MG CAP PO SCH (08:56)
[2018-10-05] MEDS: CITALOPRAM 20 MG TABLET PO SCH (08:56)
[2018-10-05] MEDS: BUDESONIDE 0.5 MG/2 ML INHA INH SCH ×2 (09:00→09:38)
[2018-10-05] MEDS: ALBUTEROL SULFATE 2.5 MG/3 ML NPPB SCH ×2 (09:00→09:37)
[2018-10-05] MEDS: NICOTINE 21 MG/24 HR PATCH.TD24 TD SCH (09:30)
[2018-10-19] MEDS ORDERED: PALIPERIDONE PALMITATE INJ SCH (09:00)
== END 2018-10-05 13:15 ==
LOC: ED 02:18 → EDIP 06:56 → UNDOADMIN 06:56 → 2N 13:30
PROVIDERS: ADMIT Internal Medicine; ATTEND Internal Medicine
DX: R45.851 Suicidal ideations (principal); J44.9 Chronic obstructive pulmonary disease, unspecified; F15.90 Other stimulant use, unspecified, uncomplicated; F20.9 Schizophrenia, unspecified; F41.1 Generalized anxiety disorder; F43.10 Post-traumatic stress disorder, unspecified; Z87.891 Personal history of nicotine dependence; Z91.14 Patient's other noncompliance with medication regimen; Z91.5 Personal history of self-harm; Z98.891 History of uterine scar from previous surgery
CPT/HCPCS: 36415; 70450; 70486; 80048; 80053; 80307; 80329; 84703; 85025; 90471; 90715; 94640; 99284; G0378; J7613; J7626; Q0162; G0480

== ENCOUNTER 2019-02-12 18:37 | Inpatient (IN) | payer MEDICARE, MEDICAID ==
[~2019-02-12] VITALS: Ht 162.6 cm; Wt 76.0 kg
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
--- NOTE | 2019-02-12 19:34 | NUR ---
PT IN ROOM WITH EQUIPMENT AND SUPPLIES BEHIND PULL-DOWN DOORS. SITTER OUTSIDE ROOM.
[2019-02-12 19:55] LABS: BASOPHILS # (AUTO) 0.08 x10^3/uL (0-0.1); BASOPHILS % (AUTO) 1 % (0-1); EOSINOPHILS # (AUTO) 0.39 x10^3/uL (0-0.4); EOSINOPHILS % (AUTO) 5 % (1-7); LYMPHOCYTES # (AUTO) 3.96 x10^3/uL (1-3.4); LYMPHOCYTES % (AUTO) 47 % (22-44); MD NO; MEAN CORPUSCULAR HGB CONC 32.9 g/dL (32.4-35.8); MEAN CORPUSCULAR VOLUME 88.1 fL (80-100); MEAN PLATELET VOLUME 7.8 fL (7.4-10.4); MONOCYTES # (AUTO) 0.59 x10^3/uL (0.2-0.8); MONOCYTES % (AUTO) 7 % (2-9); NEUTROPHILS # (AUTO) 3.38 x10^3/uL (1.8-6.8); NEUTROPHILS % (AUTO) 40 % (42-75); PLATELET COUNT 257 x10^3/uL (130-400); RED BLOOD COUNT 4.41 x10^6/uL (3.82-5.3); RED CELL DISTRIBUTION WIDTH 13.4 % (9.6-15.2)
[2019-02-12 20:05] LABS: ALBUMIN 3.7 g/dL (3.4-5.0); ANION GAP 5 mmol/L (5-15); CALCIUM 8.6 mg/dL (8.5-10.1); CHLORIDE 109 mmol/L (98-107); CREATININE 0.96 mg/dL (0.55-1.02); SALICYLATE LEVEL 4.9 mg/dL (2.8-20.0)
--- NOTE | 2019-02-12 20:38 | NUR ---
LYING IN [facility]. SITTER REMAINS OUTSIDE ROOM
--- NOTE | 2019-02-12 20:49 | NUR ---
HOSPITALIST AT BEDSIDE EXAMINING PT
[2019-02-12 21:13] LABS: AMPHETAMINE SCREEN, URINE Negative (Negative); BARBITURATE SCREEN, URINE Negative (Negative); BENZODIAZEPINE SCREEN, URINE Negative (Negative); CANNABINOID SCREEN, URINE Negative (Negative); COCAINE SCREEN, URINE Negative (Negative); METHADONE SCREEN, URINE Negative (Negative); OPIATE SCREEN, URINE Negative (Negative)
--- NOTE | 2019-02-12 21:20 | NUR ---
REPORT OF PT FROM TISHA NELSON AND ASSUMING CARE OF PT AT THIS TIME. PT IS ASLEEP IN [facility] AT THIS TIME.
[2019-02-12] MEDS ORDERED: NICOTINE 14MG/24 HR PATCH.TD24 TD SCH (21:30)
--- NOTE | 2019-02-12 21:44 | NUR ---
REPORT OF PT TO TISHA MELCHOR. ALL QUESTIONS ANSWERED. TECH AT BS WITH WHEELCHAIR FOR TRANPORT OF PT TO THE FLOOR.
[2019-02-12 21:50] VITALS: BP 103/67
[2019-02-12] MEDS: HYDROXYZINE PAMOATE 50MG CAP PO SCH (22:04)
[2019-02-13 07:58] VITALS: BP 95/58
[2019-02-13] MEDS: ESCITALOPRAM 10MG TABLET PO SCH (08:03)
[2019-02-13] MEDS: NICOTINE 14MG/24 HR PATCH.TD24 TD SCH (08:03)
[2019-02-13] MEDS: HYDROXYZINE PAMOATE 50MG CAP PO SCH ×3 (08:03→20:43)
[2019-02-13] MEDS: ALBUTEROL SULFATE 2.5 MG/3 ML NPPB SCH ×3 (09:00→21:00)
[2019-02-13] MEDS: BUDESONIDE 0.5 MG/2 ML INHA NPPB SCH ×2 (09:00→21:00)
[2019-02-13 19:41] VITALS: BP 89/58
[2019-02-14] MEDS: ALBUTEROL SULFATE 2.5 MG/3 ML NPPB SCH ×4 (02:00→19:56)
[2019-02-14 07:44] VITALS: BP 98/63
[2019-02-14] MEDS: HYDROXYZINE PAMOATE 50MG CAP PO SCH ×3 (08:16→21:04)
[2019-02-14] MEDS: ESCITALOPRAM 10MG TABLET PO SCH (08:16)
[2019-02-14] MEDS: NICOTINE 14MG/24 HR PATCH.TD24 TD SCH (08:58)
[2019-02-14] MEDS: BUDESONIDE 0.5 MG/2 ML INHA NPPB SCH ×2 (09:00→19:56)
[2019-02-14] MEDS ORDERED: ACETAMINOPHEN 325 MG TABLET PO PRN (14:30)
[2019-02-14 19:03] VITALS: BP 102/66
[2019-02-15] MEDS: ALBUTEROL SULFATE 2.5 MG/3 ML NPPB SCH (03:00)
[2019-02-15 07:28] VITALS: BP 100/65
[2019-02-15] MEDS: NICOTINE 14MG/24 HR PATCH.TD24 TD SCH (09:00)
[2019-02-15] MEDS: HYDROXYZINE PAMOATE 50MG CAP PO SCH (09:02)
[2019-02-15] MEDS: ESCITALOPRAM 10MG TABLET PO SCH (09:02)
== END 2019-02-15 12:30 | DRG 885 ==
LOC: ED 19:38 → EDIP 20:37 → 2N 21:47
PROVIDERS: ADMIT Family Medicine; ATTEND Family Medicine
DX: F25.9 Schizoaffective disorder, unspecified (principal); R45.851 Suicidal ideations; F17.210 Nicotine dependence, cigarettes, uncomplicated; F43.10 Post-traumatic stress disorder, unspecified; J45.909 Unspecified asthma, uncomplicated; B19.20 Unspecified viral hepatitis C without hepatic coma; Z91.5 Personal history of self-harm
CPT/HCPCS: 36415; 80048; 80307; 82040; 84703; 85025; 94640; 99285; G0378; J7613; J7626

== ENCOUNTER 2019-08-23 23:09 | Emergency (ER) | payer MEDICARE, MEDICAID ==
[~2019-08-23] VITALS: Ht 162.6 cm; Wt 76.8 kg
[~2019-08-23 23:09] MED LIST changes: -CARB100C; +CARB100C8
[2019-08-23 23:12] VITALS: BP 128/71
--- NOTE | 2019-08-23 23:18 | NUR ---
assessment made. chart up for MD to see.
--- NOTE | 2019-08-23 23:25 | NUR ---
PA at bedside.
== END 2019-08-23 23:41 | disposition home or self-care (01) ==
LOC: ED 23:35
DX: F15.10 Other stimulant abuse, uncomplicated (principal); F41.9 Anxiety disorder, unspecified
CPT/HCPCS: 99281

== ENCOUNTER 2019-09-14 08:31 | Emergency (ER) | payer MEDICAID, MEDICARE ==
[~2019-09-14] VITALS: Ht 162.6 cm; Wt 72.2 kg
[2019-09-14 08:36] VITALS: BP 118/75
== END 2019-09-14 09:20 | disposition home or self-care (01) ==
LOC: ED 09:10
DX: L01.00 Impetigo, unspecified (principal); J45.909 Unspecified asthma, uncomplicated; Z88.8 Allergy status to other drugs, medicaments and biological substances; Z79.899 Other long term (current) drug therapy
CPT/HCPCS: 99283

== ENCOUNTER 2019-09-24 17:55 | Emergency (ER) | payer MEDICARE, MEDICAID ==
[~2019-09-24] VITALS: Ht 162.6 cm; Wt 71.6 kg
[2019-09-24 18:06] VITALS: BP 126/80
== END 2019-09-24 20:47 | disposition home or self-care (01) ==
LOC: ED 20:17
DX: R51 Headache (principal); J45.909 Unspecified asthma, uncomplicated; F17.200 Nicotine dependence, unspecified, uncomplicated
CPT/HCPCS: 99283

== ENCOUNTER 2019-10-14 01:16 | Emergency (ER) | payer MEDICARE, MEDICAID ==
[~2019-10-14 01:16] MED LIST changes: -TRAZ-137 PO; +TRAZ-175 PO
== END 2019-10-14 01:32 | disposition left against medical advice (07) ==
LOC: ED 01:21
DX: F06.8 Other specified mental disorders due to known physiological condition (principal); Z53.21 Procedure and treatment not carried out due to patient leaving prior to being seen by health care provider

== ENCOUNTER 2019-10-14 16:59 | Emergency (ER) | payer MEDICARE, MEDICAID ==
[~2019-10-14] VITALS: Ht 162.6 cm; Wt 69.3 kg
[2019-10-14] MEDS ORDERED: hydrOXyzine 50MG TABLET ONE (18:40)
[2019-10-14 18:53] VITALS: BP 155/79
--- NOTE | 2019-10-14 18:55 | NUR ---
D/C INSTRUCTIONS, MEDS & F/U APPT RV'WD WITH PT, SHE VERBALIZES UNDERSTANDING. RX GIVEN X1. PT AMBULATED OUT OF ED WITHOUT DIFFICULTY.
== END 2019-10-14 18:56 | disposition home or self-care (01) ==
LOC: ED 18:50
DX: F15.129 Other stimulant abuse with intoxication, unspecified (principal); F16.10 Hallucinogen abuse, uncomplicated; J45.909 Unspecified asthma, uncomplicated; F17.200 Nicotine dependence, unspecified, uncomplicated; Z72.9 Problem related to lifestyle, unspecified
CPT/HCPCS: 99283; Q0177

== ENCOUNTER 2019-10-18 01:27 | Emergency (ER) | payer MEDICARE, MEDICAID | END 2019-10-18 04:46 | LOC: ED 01:27 | DX: F41.1 Generalized anxiety disorder (principal); F15.10 Other stimulant abuse, uncomplicated; Z72.9 Problem related to lifestyle, unspecified; F17.200 Nicotine dependence, unspecified, uncomplicated | CPT/HCPCS: 99283 ==

== ENCOUNTER 2019-10-26 10:18 | Emergency (ER) | payer MEDICARE, MEDICAID ==
[~2019-10-26] VITALS: Ht 162.6 cm; Wt 70.4 kg
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
[2019-10-26] MEDS ORDERED: LITHIUM PO (10:42)
[2019-10-26] MEDS ORDERED: TRAZ50TA66 PO (10:42)
--- NOTE | 2019-10-26 10:57 | NUR ---
ASKED PT TO PROVDIE URINE SAMPLE. PT STATES SHE IS UNABLE TO AT THIS TIME. GIVEN CUP OF WATER. WILL TRY AGAIN IN A FEW MINUTES.
[2019-10-26 11:12] VITALS: BP 98/66
--- NOTE | 2019-10-26 11:13 | NUR ---
PT STATES STILL UNABLE TO PROVIDE URINE SAMPLE. GIVEN ANOTHER CUP OF WATER.
[2019-10-26 11:20] LABS: BASOPHILS # (AUTO) 0.03 x10^3/uL (0-0.1); BASOPHILS % (AUTO) 0 % (0-1); EOSINOPHILS # (AUTO) 0.38 x10^3/uL (0-0.4); EOSINOPHILS % (AUTO) 5 % (1-7); LYMPHOCYTES # (AUTO) 2.56 x10^3/uL (1-3.4); LYMPHOCYTES % (AUTO) 32 % (22-44); MD NO; MEAN CORPUSCULAR HEMOGLOBIN 29.4 pg (27.0-34.8); MEAN CORPUSCULAR HGB CONC 32.9 g/dL (32.4-35.8); MEAN CORPUSCULAR VOLUME 89.5 fL (80-100); MEAN PLATELET VOLUME 7.7 fL (7.4-10.4); MONOCYTES # (AUTO) 0.55 x10^3/uL (0.2-0.8); MONOCYTES % (AUTO) 7 % (2-9); NEUTROPHILS # (AUTO) 4.59 x10^3/uL (1.8-6.8); NEUTROPHILS % (AUTO) 57 % (42-75); PLATELET COUNT 295 x10^3/uL (130-400); RED CELL DISTRIBUTION WIDTH 15.1 % (9.6-15.2)
[2019-10-26 11:27] LABS: ALANINE AMINOTRANSFERASE 10 U/L (12-78); ALBUMIN 3.8 g/dL (3.4-5.0); ANION GAP 4 mmol/L (5-15); CALCIUM 8.4 mg/dL (8.5-10.1); CHLORIDE 107 mmol/L (98-107); CREATININE 0.79 mg/dL (0.55-1.02); SALICYLATE LEVEL 2.1 mg/dL (2.8-20.0)
[2019-10-26 11:29] LABS: ALKALINE PHOSPHATASE 69 U/L (45-117); BILIRUBIN,TOTAL 0.5 mg/dL (0.2-1.0); TOTAL PROTEIN 7.1 g/dL (6.4-8.2)
--- NOTE | 2019-10-26 11:38 | NUR ---
PT AMBULATED TO THE BR W/ A STEADY GAIT.
--- NOTE | 2019-10-26 11:43 | NUR ---
URINE COLLECTED AND SENT TO LAB.
[2019-10-26 12:04] LABS: AMPHETAMINE SCREEN, URINE Positive (Negative); BARBITURATE SCREEN, URINE Negative (Negative); BENZODIAZEPINE SCREEN, URINE Negative (Negative); CANNABINOID SCREEN, URINE Positive (Negative); COCAINE SCREEN, URINE Negative (Negative); METHADONE SCREEN, URINE Negative (Negative); OPIATE SCREEN, URINE Negative (Negative)
[2019-10-26 12:15] LABS: MICROSCOPIC INDICATED
[2019-10-26 12:18] LABS: CULTURE INDICATED? YES
--- NOTE | 2019-10-26 12:25 | NUR ---
ALL TESTS RESULTED. PT IS UP FOR RECHECK AT THIS TIME.
[2019-10-26] MEDS ORDERED: FOSFOMYCIN 3 GM PACKET PO ONE (12:35)
[2019-10-26] MEDS ORDERED: FOSFOMYCIN 3 GM PACKET ONE (12:57)
--- NOTE | 2019-10-26 13:12 | NUR ---
Patient given discharge instructions and they have confirmed that they understand the instructions. Patient ambulatory with steady gait.
== END 2019-10-26 13:13 | disposition home or self-care (01) ==
LOC: ED 12:57
DX: N30.00 Acute cystitis without hematuria (principal); F12.20 Cannabis dependence, uncomplicated; F15.20 Other stimulant dependence, uncomplicated; Z72.9 Problem related to lifestyle, unspecified; F17.210 Nicotine dependence, cigarettes, uncomplicated
CPT/HCPCS: 36415; 80053; 80307; 81001; 84703; 85025; 87086; 99283

== ENCOUNTER 2019-12-02 23:14 | Emergency (ER) | payer MEDICAID, MEDICARE, OTHER ==
[~2019-12-02] VITALS: Ht 162.6 cm; Wt 68.0 kg
[~2019-12-02 23:14] MED LIST changes: +LITHIUM PO; +TRAZ50TA66 PO
[2019-12-03 00:03] VITALS: BP 119/74
== END 2019-12-03 00:04 | disposition home or self-care (01) ==
LOC: ED 23:29
DX: J34.0 Abscess, furuncle and carbuncle of nose (principal); J06.9 Acute upper respiratory infection, unspecified; Z76.0 Encounter for issue of repeat prescription
CPT/HCPCS: 99283

== ENCOUNTER 2019-12-04 19:31 | Emergency (ER) | payer MEDICARE ==
[~2019-12-04] VITALS: Ht 162.6 cm; Wt 68.8 kg
[2019-12-04 19:35] VITALS: BP 134/83
== END 2019-12-04 20:13 | disposition left against medical advice (07) ==
LOC: ED 19:58
DX: M25.512 Pain in left shoulder (principal); G89.29 Other chronic pain; F41.9 Anxiety disorder, unspecified; F15.10 Other stimulant abuse, uncomplicated
CPT/HCPCS: 99281

== ENCOUNTER 2019-12-17 22:50 | Emergency (ER) | payer MEDICARE ==
[~2019-12-17] VITALS: Ht 162.6 cm; Wt 65.8 kg
[2019-12-17 23:05] VITALS: BP 137/74
== END 2019-12-17 23:07 | disposition home or self-care (01) ==
LOC: ED 23:00
DX: F32.9 Major depressive disorder, single episode, unspecified (principal); F25.9 Schizoaffective disorder, unspecified; G43.909 Migraine, unspecified, not intractable, without status migrainosus; F17.210 Nicotine dependence, cigarettes, uncomplicated; Z76.0 Encounter for issue of repeat prescription; Z86.19 Personal history of other infectious and parasitic diseases
CPT/HCPCS: 99281

== ENCOUNTER 2019-12-21 19:16 | Emergency (ER) | payer MEDICARE, MEDICAID ==
[~2019-12-21] VITALS: Ht 162.6 cm; Wt 66.1 kg
--- NOTE | 2019-12-21 19:31 | NUR ---
CHILDREN'S LUNCHROOM SUPERVISOR AT BEDSIDE TO ASSESS PT
[2019-12-21 19:34] VITALS: BP 112/80
--- NOTE | 2019-12-21 19:34 | NUR ---
THIS IS A 39Y F THAT PRESENTS TO THE ER [facility] FOR "HEARING VOICES." PT STS SHE WAS PREVIOUSLY MEDICATED FOR THIS AND HAS NOT GOTTEN HER ABILIFY SHOT IN A FEW MONTHS. PT DENIES MEDICAL COMPLAINTS AT THIS TIME BUT STS DRY COUGH AND THAT SHE HAS BEEN SMOKING FOR YEARS. PT CONNECTED TO MONITORING, PETE MEYER
--- NOTE | 2019-12-21 20:55 | NUR ---
Patient/Caregiver given discharge instructions and they have confirmed that they understand the instructions. Patient ambulatory with steady gait.
== END 2019-12-21 20:56 | disposition home or self-care (01) ==
LOC: ED 19:33
DX: F25.9 Schizoaffective disorder, unspecified (principal); M25.512 Pain in left shoulder
CPT/HCPCS: 71045; 99283

== ENCOUNTER 2019-12-30 19:14 | Emergency (ER) | payer MEDICARE, MEDICAID ==
[~2019-12-30] VITALS: Ht 162.6 cm; Wt 65.0 kg
--- NOTE | 2019-12-30 19:41 | NUR ---
Pt presents to room restless stating she is here for medication refills. Pt reports using meth today and marijuana last night. Pt states she has not taken any of her meds today as she is out. Pt then reports taking 10 pills of Benadryl yesterday in place of her Vistaril because "I was told to do that before". Pt denies any symptoms here.
[2019-12-30 20:18] VITALS: BP 116/90
== END 2019-12-30 20:20 | disposition home or self-care (01) ==
LOC: ED 20:10
DX: F15.951 Other stimulant use, unspecified with stimulant-induced psychotic disorder with hallucinations (principal); F17.210 Nicotine dependence, cigarettes, uncomplicated; Z76.0 Encounter for issue of repeat prescription
CPT/HCPCS: 99281; 99284

== ENCOUNTER 2020-01-10 23:04 | Emergency (ER) | payer MEDICARE, MEDICAID ==
[~2020-01-10] VITALS: Ht 162.6 cm; Wt 64.0 kg
[2020-01-10 23:07] VITALS: BP 120/72
== END 2020-01-10 23:40 | disposition home or self-care (01) ==
LOC: ED 23:25
DX: H66.001 Acute suppurative otitis media without spontaneous rupture of ear drum, right ear (principal); R50.9 Fever, unspecified; F17.210 Nicotine dependence, cigarettes, uncomplicated
CPT/HCPCS: 99283; 99406

== ENCOUNTER 2020-01-18 18:12 | Emergency (ER) | payer MEDICARE, MEDICAID ==
[~2020-01-18] VITALS: Ht 162.6 cm; Wt 63.4 kg
[2020-01-18 18:22] VITALS: BP 121/88
--- NOTE | 2020-01-18 18:38 | NUR ---
COUNTERSINKER BALANCE SCREW HOLE: PT LEFT, "WILL COME BACK LATER"
== END 2020-01-18 18:41 | disposition left against medical advice (07) ==
LOC: ED 18:35
DX: M79.671 Pain in right foot (principal); M79.672 Pain in left foot; Z53.21 Procedure and treatment not carried out due to patient leaving prior to being seen by health care provider

== ENCOUNTER 2020-01-23 11:23 | Emergency (ER) | payer MEDICAID, MEDICARE ==
[~2020-01-23] VITALS: Ht 162.6 cm; Wt 60.0 kg
[2020-01-23 11:31] VITALS: BP 108/69
--- NOTE | 2020-01-23 12:41 | NUR ---
PT SOAKED FEET IN BETADINE BATH PER MD ORDER, NEW SOCKS PROVIDED, PT PLACED FOR RECHECK
== END 2020-01-23 13:12 | disposition home or self-care (01) ==
LOC: ED 12:10
DX: J45.909 Unspecified asthma, uncomplicated (principal); F15.10 Other stimulant abuse, uncomplicated; Z76.0 Encounter for issue of repeat prescription; B35.3 Tinea pedis; F17.290 Nicotine dependence, other tobacco product, uncomplicated
CPT/HCPCS: 99281

== ENCOUNTER 2020-01-28 11:24 | Emergency (ER) | payer MEDICARE, MEDICAID ==
[~2020-01-28] VITALS: Ht 162.6 cm; Wt 63.2 kg
[2020-01-28 11:25] VITALS: BP 127/82
--- NOTE | 2020-01-28 11:38 | NUR ---
PT BROUGHT BACK FROM TRIAGE WITH CHIEF COMPLAINT OF CONTINUED BILAT FOOT RASH. PT SEENS HERE [facility] ED ABOUT ONE WEEK AGO, HOWEVER UNABLE TO FILL PRESCRIPTION. RASH & PAIN CONTINUES ON BILAT FEET.
--- NOTE | 2020-01-28 11:56 | NUR ---
Leroy SANDERSON at bedside for eval.
--- NOTE | 2020-01-28 12:53 | NUR ---
PERSONNEL ASSOCIATE CLEANED/DRESSED FEET ORDERED. DISCHARGE INSTRUCTIONS REVIEWED.
== END 2020-01-28 13:08 | disposition home or self-care (01) ==
LOC: ED 12:29
DX: S90.415A Abrasion, left lesser toe(s), initial encounter (principal); B35.3 Tinea pedis; L03.032 Cellulitis of left toe; J45.909 Unspecified asthma, uncomplicated; G43.909 Migraine, unspecified, not intractable, without status migrainosus; F17.200 Nicotine dependence, unspecified, uncomplicated; X58.XXXA Exposure to other specified factors, initial encounter; Y93.89 Activity, other specified; Y92.89 Other specified places as the place of occurrence of the external cause; Y99.8 Other external cause status
CPT/HCPCS: 99283

== ENCOUNTER 2020-02-02 13:41 | Emergency (ER) | payer MEDICARE, MEDICAID ==
[~2020-02-02] VITALS: Ht 162.6 cm; Wt 63.6 kg
[2020-02-02 13:43] VITALS: BP 107/72
== END 2020-02-02 14:41 | disposition home or self-care (01) ==
LOC: ED 14:30
DX: B35.3 Tinea pedis (principal); J45.909 Unspecified asthma, uncomplicated; F17.200 Nicotine dependence, unspecified, uncomplicated
CPT/HCPCS: 99282

== ENCOUNTER 2020-02-03 15:52 | Emergency (ER) | payer MEDICARE, MEDICAID ==
[~2020-02-03] VITALS: Ht 162.6 cm; Wt 63.3 kg
[2020-02-03 16:13] VITALS: BP 106/74
[2020-02-03] MEDS ORDERED: CLOTRIMAZOLE CRM 1%, 15GM TP SCH (21:00)
== END 2020-02-03 17:06 | disposition home or self-care (01) ==
LOC: ED 16:23
DX: B35.3 Tinea pedis (principal); J45.909 Unspecified asthma, uncomplicated; F20.9 Schizophrenia, unspecified; G43.909 Migraine, unspecified, not intractable, without status migrainosus
CPT/HCPCS: 99281; 99282

== ENCOUNTER 2020-02-08 09:19 | Emergency (ER) | payer MEDICARE, MEDICAID ==
[~2020-02-08] VITALS: Ht 162.6 cm; Wt 61.5 kg
[2020-02-08 09:21] VITALS: BP 146/80
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
== END 2020-02-08 10:11 | disposition left against medical advice (07) ==
LOC: ED 09:41
DX: F20.9 Schizophrenia, unspecified (principal); Z76.0 Encounter for issue of repeat prescription; F15.10 Other stimulant abuse, uncomplicated; F17.200 Nicotine dependence, unspecified, uncomplicated
CPT/HCPCS: 99281

== ENCOUNTER 2020-03-13 02:09 | Emergency (ER) | payer MEDICARE, MEDICAID ==
[~2020-03-13] VITALS: Ht 162.6 cm; Wt 60.7 kg
[2020-03-13 02:11] VITALS: BP 105/83
--- NOTE | 2020-03-13 02:35 | NUR ---
PT TO ED WITH C/O FOOT PAIN, CALLOUS' AND BLISTERS NOTED ACROSS BILATERAL FEET. PT REPORTS HOMELESSNESS AND HAS DIFFICULTY CARING FOR FEET. PROVIDED X2 SETS OF SOCKS BY THIS RN AND EDUCATED ON BASIC FOOT/ SKIN CARE. PT VERBALIZED UNDERSTANDING. ALSO REPORTS BEING OFF PSYCHIATRIC MEDICATIONS FOR X4 DAYS, REPORTS "MY FRIENDS SAY I DON'T NEED IT SO THEY TAKE IT".
== END 2020-03-13 04:31 | disposition home or self-care (01) ==
LOC: ED 02:55
DX: M79.672 Pain in left foot (principal); M79.671 Pain in right foot; R60.0 Localized edema; R23.8 Other skin changes; J45.909 Unspecified asthma, uncomplicated; F17.210 Nicotine dependence, cigarettes, uncomplicated; Z59.0 Homelessness
CPT/HCPCS: 99281

== ENCOUNTER 2020-03-15 13:39 | Emergency (ER) | payer MEDICARE, MEDICAID ==
--- NOTE | 2020-03-15 13:56 | NUR ---
NO ANSWER X2
--- NOTE | 2020-03-15 14:13 | NUR ---
CALLED PT NO ANSWER
== END 2020-03-15 14:14 | disposition left against medical advice (07) ==
LOC: ED 14:08
DX: M79.673 Pain in unspecified foot (principal); Z53.21 Procedure and treatment not carried out due to patient leaving prior to being seen by health care provider

== ENCOUNTER 2020-03-22 00:09 | Emergency (ER) | payer MEDICARE, MEDICAID ==
[~2020-03-22] VITALS: Ht 162.6 cm; Wt 60.7 kg
[2020-03-22 00:12] VITALS: BP 150/70
[2020-04-28] MEDS ORDERED: FLUT1BLS INH (12:12)
[2020-04-28] MEDS ORDERED: SERT100T32 PO (12:12)
[2020-04-28] MEDS ORDERED: HYDR50CA PO (12:12)
[2020-04-28] MEDS ORDERED: PRAZ1CAP2 PO (12:12)
[2020-04-28] MEDS ORDERED: CARB200T2 PO (12:12)
[2020-04-28] MEDS ORDERED: LITH150C PO (12:12)
[2020-04-28] MEDS ORDERED: ALBU18HF INH (12:12)
[2020-04-28] MEDS ORDERED: NICO-485 TD (12:12)
[2020-05-22] MEDS ORDERED: CARB200T2 PO (14:50)
[2020-05-22] MEDS ORDERED: PRAZ2CAP2 PO (14:50)
[2020-05-22] MEDS ORDERED: SERT100T32 PO (14:50)
[2020-05-22] MEDS ORDERED: LITH300C PO (14:50)
[2020-05-22] MEDS ORDERED: ALBU18HF INH (14:50)
[2020-05-22] MEDS ORDERED: NICO-485 TD (14:50)
[2020-05-22] MEDS ORDERED: FLUT1BLS INH (14:50)
== END 2020-03-22 01:08 ==
LOC: ED 00:18
DX: J45.909 Unspecified asthma, uncomplicated (principal); Z53.21 Procedure and treatment not carried out due to patient leaving prior to being seen by health care provider

== ENCOUNTER 2020-03-27 11:25 | Emergency (ER) | payer MEDICARE, MEDICAID ==
[~2020-03-27] VITALS: Ht 162.6 cm; Wt 51.3 kg
[2020-03-27 11:28] VITALS: BP 126/94
--- NOTE | 2020-03-27 11:44 | NUR ---
WHEN ASKED WHY PT CAME TO ER TODAY, PT STATES "IM HERE BECAUSE MY FEET ARE MAKING MY HEAD HURT, I DID SOME STARDUST YESTERDAY BUT OTHER THAN THAT IM CLEAN, I NEED MAYBE SOME BUSPAR OR SOMETHING FOR ANXIETY. IM HOMELESSS AND CANT GET OUT OF HERE WITHOUT THESE PEOPLE FOLLOWING ME ALL AROUND." PT WITH FLIGHT OF IDEAS, TALKING TO HERSELF, HAVING AUDITORY HALLUCINATIONS. PT DENIES SI/HI.
== END 2020-03-27 12:19 | disposition home or self-care (01) ==
LOC: ED 12:05
DX: F29 Unspecified psychosis not due to a substance or known physiological condition (principal); M79.672 Pain in left foot; M79.671 Pain in right foot; F17.210 Nicotine dependence, cigarettes, uncomplicated
CPT/HCPCS: 99281; 99406

== ENCOUNTER 2020-03-29 09:30 | Emergency (ER) | payer MEDICARE, MEDICAID ==
[~2020-03-29] VITALS: Ht 162.6 cm; Wt 59.0 kg
[2020-03-29 09:39] VITALS: BP 111/66
--- NOTE | 2020-03-29 09:47 | NUR ---
PT TO ROOM AT THIS TIME.
--- NOTE | 2020-03-29 10:31 | NUR ---
Patient/Caregiver given discharge instructions and they have confirmed that they understand the instructions. Patient ambulatory with steady gait. PT LEFT WITH ALL PERSONAL BELONGINGS.
[2020-04-28] MEDS ORDERED: NICO-485 TD (12:12)
[2020-04-28] MEDS ORDERED: HYDR50CA PO (12:12)
[2020-04-28] MEDS ORDERED: SERT100T32 PO (12:12)
[2020-04-28] MEDS ORDERED: PRAZ1CAP2 PO (12:12)
[2020-04-28] MEDS ORDERED: CARB200T2 PO (12:12)
[2020-04-28] MEDS ORDERED: LITH150C PO (12:12)
[2020-04-28] MEDS ORDERED: FLUT1BLS INH (12:12)
[2020-04-28] MEDS ORDERED: ALBU18HF INH (12:12)
[2020-05-22] MEDS ORDERED: NICO-485 TD (14:50)
[2020-05-22] MEDS ORDERED: FLUT1BLS INH (14:50)
[2020-05-22] MEDS ORDERED: PRAZ2CAP2 PO (14:50)
[2020-05-22] MEDS ORDERED: ALBU18HF INH (14:50)
[2020-05-22] MEDS ORDERED: LITH300C PO (14:50)
[2020-05-22] MEDS ORDERED: SERT100T32 PO (14:50)
[2020-05-22] MEDS ORDERED: CARB200T2 PO (14:50)
== END 2020-03-29 10:33 | disposition home or self-care (01) ==
LOC: ED 10:11
DX: F22 Delusional disorders (principal); Z72.9 Problem related to lifestyle, unspecified; F17.210 Nicotine dependence, cigarettes, uncomplicated; J45.909 Unspecified asthma, uncomplicated
CPT/HCPCS: 99281; 99406

== ENCOUNTER 2020-04-02 11:25 | Emergency (ER) | payer MEDICARE, MEDICAID ==
[~2020-04-02] VITALS: Ht 162.6 cm; Wt 59.6 kg
[2020-04-02 11:31] VITALS: BP 136/86
--- NOTE | 2020-04-02 11:54 | NUR ---
PT REFUSING TO ANSWER ANY QUESTIONS ABOUT HER MEDICAL HX OR SITUATION. STATES, "YOU DON'T NEED TO KNOW THAT. I'LL JUST TAKE MY PRESCRIPTION, THANKS," AND WALKS OUT OF ED. D/C INSTRUCTIONS & F/U INFORMATION PROVIDED TO PT. RX GIVEN X1.
[2020-04-28] MEDS ORDERED: NICO-485 TD (12:12)
[2020-04-28] MEDS ORDERED: FLUT1BLS INH (12:12)
[2020-04-28] MEDS ORDERED: PRAZ1CAP2 PO (12:12)
[2020-04-28] MEDS ORDERED: SERT100T32 PO (12:12)
[2020-04-28] MEDS ORDERED: CARB200T2 PO (12:12)
[2020-04-28] MEDS ORDERED: HYDR50CA PO (12:12)
[2020-04-28] MEDS ORDERED: LITH150C PO (12:12)
[2020-04-28] MEDS ORDERED: ALBU18HF INH (12:12)
[2020-05-22] MEDS ORDERED: FLUT1BLS INH (14:50)
[2020-05-22] MEDS ORDERED: SERT100T32 PO (14:50)
[2020-05-22] MEDS ORDERED: CARB200T2 PO (14:50)
[2020-05-22] MEDS ORDERED: ALBU18HF INH (14:50)
[2020-05-22] MEDS ORDERED: PRAZ2CAP2 PO (14:50)
[2020-05-22] MEDS ORDERED: LITH300C PO (14:50)
[2020-05-22] MEDS ORDERED: NICO-485 TD (14:50)
== END 2020-04-02 11:58 | disposition home or self-care (01) ==
LOC: ED 11:42
DX: J45.909 Unspecified asthma, uncomplicated (principal); F15.129 Other stimulant abuse with intoxication, unspecified; G43.909 Migraine, unspecified, not intractable, without status migrainosus; F17.210 Nicotine dependence, cigarettes, uncomplicated; Z76.0 Encounter for issue of repeat prescription
CPT/HCPCS: 99281

== ENCOUNTER 2020-04-06 08:00 | Emergency (ER) | payer MEDICARE, MEDICAID ==
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
== END 2020-04-06 08:16 | disposition left against medical advice (07) ==
LOC: ED 08:10
DX: F41.9 Anxiety disorder, unspecified (principal); R51 Headache

== ENCOUNTER 2020-04-06 11:28 | Emergency (ER) | payer MEDICARE, MEDICAID ==
--- NOTE | 2020-04-06 11:35 | NUR ---
No answer from lobby when pt called for triage. Triage door screener states that pt left, states she will come back later.
== END 2020-04-06 11:37 | disposition left against medical advice (07) ==
LOC: ED 11:31
DX: F41.9 Anxiety disorder, unspecified (principal); Z53.21 Procedure and treatment not carried out due to patient leaving prior to being seen by health care provider

== ENCOUNTER 2020-04-06 17:55 | Emergency (ER) | payer MEDICAID, MEDICARE ==
[~2020-04-06] VITALS: Ht 162.6 cm; Wt 59.1 kg
--- NOTE | 2020-04-06 18:25 | NUR ---
PT HERE FOR THIRD VISIT TODAY. PT STATES SHE DID METH YESTERDAY AND USES METH EVERY DAY BECAUSE SHE CANT GET HER MEDS FILLED. PT STATES "I KEEP HEARING ALL THE VOICES, THEY WANT ME TO SLEEP WITH THEM FOR METH, BUT IM NOT EVEN SURE THAT IT IS METH" PT STATES "THEY ARE ARGUING AND I WANT TO HIT MYSELF, I CANT STAND THE VOICES ANYMORE. PT DENIES SI.
--- NOTE | 2020-04-06 18:45 | NUR ---
REPROT RECEIVED FROM TISHA NAIK.
[2020-04-06 19:06] VITALS: BP 108/64
--- NOTE | 2020-04-06 19:06 | NUR ---
PT ATTEMPTED TO PROVIDE UA, UNABLE TO PROVIDE UA AT THIS TIME.
--- NOTE | 2020-04-06 19:07 | NUR ---
PT HAS FLIGHT OF IDEAS AND RAMBLING SPEECH, REPORTS SHE USED METH LAST NIGHT [facility], DENIES ANY OTHER DRUG USE AT THIS TIME.
--- NOTE | 2020-04-06 19:25 | NUR ---
PT PROVIDED WATER
[2020-04-06 19:32] LABS: ALBUMIN 3.2 g/dL (3.4-5.0); ANION GAP 7 mmol/L (5-15); CALCIUM 8.2 mg/dL (8.5-10.1); CHLORIDE 109 mmol/L (98-107); CREATININE 0.75 mg/dL (0.55-1.02); MD YES; MEAN CORPUSCULAR HEMOGLOBIN 28.7 pg (27.0-34.8); MEAN CORPUSCULAR HGB CONC 31.7 g/dL (32.4-35.8); MEAN CORPUSCULAR VOLUME 90.5 fL (80-100); PLATELET COUNT 326 x10^3/uL (130-400); RED BLOOD COUNT 4.42 x10^6/uL (3.82-5.3); RED CELL DISTRIBUTION WIDTH 14.4 % (9.6-15.2); SALICYLATE LEVEL 2.5 mg/dL (2.8-20.0)
[2020-04-06 19:50] LABS: <RBC MORPHOLOGY> NORMAL; EOS#(MANUAL) 0.22 x10^3/uL (0.0-0.4); EOS% (MANUAL) 3 % (1-7); LYMPH#(MANUAL) 3.29 x10^3/uL (1-3.4); LYMPHS% (MANUAL) 45 % (22-44); MONOS#(MANUAL) 0.29 x10^3/uL (0.3-2.7); MONOS% (MANUAL) 4 % (2-9); SEGS% (MANUAL) 48 % (42-75)
[2020-04-06 19:51] LABS: <PLATELET ESTIMATE> ADEQUATE; <PLT MORPHOLOGY> NORMAL PLT MORPH
== END 2020-04-06 19:54 | disposition home or self-care (01) ==
LOC: ED 18:49
DX: F20.9 Schizophrenia, unspecified (principal); F15.10 Other stimulant abuse, uncomplicated; J45.909 Unspecified asthma, uncomplicated; G43.909 Migraine, unspecified, not intractable, without status migrainosus; F17.200 Nicotine dependence, unspecified, uncomplicated
CPT/HCPCS: 36415; 80048; 80307; 82040; 84703; 85025; 99284

== ENCOUNTER 2020-04-08 08:39 | Emergency (ER) | payer MEDICARE ==
[~2020-04-08] VITALS: Ht 162.6 cm; Wt 56.5 kg
[2020-04-08 08:40] VITALS: BP 124/90
--- NOTE | 2020-04-08 08:53 | NUR ---
Johnathon RN note: This RN assisting billing and insurance coordinator. Asked pt what medical complaint she has today. Pt reports R ear pain "from all the people who are yelling at me all the time. I've also had a migraine for four or five days that I just noticed right now." Pt advised that no rooms are available at this time and she needs to wait in the lobby briefly until a room becomes available. Pt verbalizes understanding of this, gathering all her belongings and ambulating out of triage room.
--- NOTE | 2020-04-08 09:04 | NUR ---
Pt called for room from lobby. Pt not in lobby. Triage door screener states that pt left.
== END 2020-04-08 09:06 | disposition left against medical advice (07) ==
LOC: ED 09:00
DX: H92.09 Otalgia, unspecified ear (principal); Z53.21 Procedure and treatment not carried out due to patient leaving prior to being seen by health care provider

== ENCOUNTER 2020-04-10 08:13 | Emergency (ER) | payer MEDICARE, MEDICAID ==
[~2020-04-10] VITALS: Ht 162.6 cm; Wt 58.6 kg
[2020-04-10 08:18] VITALS: BP 130/86
--- NOTE | 2020-04-10 08:20 | NUR ---
pt also stated "if I don't get my prescription I'm just going to leave. Can I get a shower too?" as
--- NOTE | 2020-04-10 08:20 | NUR ---
pt outside ed entrance smoking cigarettes. as
--- NOTE | 2020-04-10 08:43 | NUR ---
MANUFACTURING CLERK: CALLED FOR ROOM, NO ANSWER
--- NOTE | 2020-04-10 08:57 | NUR ---
EQUAL OPPORTUNITY DIRECTOR: CALLED FOR ROOM, NO ANSWER
--- NOTE | 2020-04-10 10:07 | NUR ---
CARTON FORMING MACHINE ADJUSTER: CALLED FOR ROOM, NO ANSWER
== END 2020-04-10 10:08 | disposition left against medical advice (07) ==
LOC: ED 09:30
DX: R06.02 Shortness of breath (principal); Z53.21 Procedure and treatment not carried out due to patient leaving prior to being seen by health care provider

== ENCOUNTER 2020-04-10 16:22 | Emergency (ER) | payer MEDICARE, MEDICAID ==
[~2020-04-10] VITALS: Ht 162.6 cm; Wt 58.7 kg
[2020-04-10 16:32] VITALS: BP 138/84
--- NOTE | 2020-04-10 19:49 | NUR ---
patient not in the lobby. eloped.
== END 2020-04-10 19:50 | disposition left against medical advice (07) ==
LOC: ED 19:43
DX: M79.89 Other specified soft tissue disorders (principal); Z53.21 Procedure and treatment not carried out due to patient leaving prior to being seen by health care provider

== ENCOUNTER 2020-04-11 01:33 | Emergency (ER) | payer MEDICARE, MEDICAID ==
[~2020-04-11] VITALS: Ht 162.6 cm; Wt 58.0 kg
[2020-04-11 01:36] VITALS: BP 124/77
--- NOTE | 2020-04-11 02:36 | NUR ---
Provided pt with socks and lotion per request, pt being DCed at this time
== END 2020-04-11 02:46 | disposition home or self-care (01) ==
LOC: ED 02:44
DX: J45.909 Unspecified asthma, uncomplicated (principal); F17.210 Nicotine dependence, cigarettes, uncomplicated; Z76.0 Encounter for issue of repeat prescription
CPT/HCPCS: 99283; 99406

== ENCOUNTER 2020-04-12 09:38 | Emergency (ER) | payer MEDICARE, MEDICAID ==
[~2020-04-12] VITALS: Ht 162.6 cm; Wt 58.6 kg
[2020-04-12 09:43] VITALS: BP 116/65
[2020-04-12] MEDS ORDERED: IBUPROFEN 600 MG TABLET PO ONE (10:00)
[2020-04-12] MEDS ORDERED: IBUPROFEN 600 MG TABLET ONE (10:08)
== END 2020-04-12 10:39 | disposition home or self-care (01) ==
LOC: ED 09:45
DX: B35.3 Tinea pedis (principal); M79.672 Pain in left foot
CPT/HCPCS: 99282

== ENCOUNTER 2020-04-14 09:17 | Emergency (ER) | payer MEDICARE, MEDICAID ==
[~2020-04-14] VITALS: Ht 162.6 cm; Wt 57.2 kg
[2020-04-14 09:19] VITALS: BP 120/82
--- NOTE | 2020-04-14 09:50 | NUR ---
GAVE PT SOAKED TO CLEAN FEET AND WATER AND IODINE TO SOKE FEET. PT CLEANED AND SOAKED FEET THEN STARTED YELLING AND RAN OUT OF THE ER. PT WAS ASKED IF SHE WANTED SHOES/SOCKS. PT JUST RAN OUT. NOTIFIED.
== END 2020-04-14 09:54 | disposition left against medical advice (07) ==
LOC: ED 09:50
DX: M79.671 Pain in right foot (principal); M79.672 Pain in left foot; J45.909 Unspecified asthma, uncomplicated
CPT/HCPCS: 99281

== ENCOUNTER 2020-04-15 17:02 | Emergency (ER) | payer MEDICARE, MEDICAID ==
--- NOTE | 2020-04-15 18:45 | NUR ---
not in lobby
--- NOTE | 2020-04-15 18:58 | NUR ---
not in lobby
--- NOTE | 2020-04-15 19:47 | NUR ---
NIL X 3
== END 2020-04-15 19:35 | disposition left against medical advice (07) ==
LOC: ED 19:35
DX: Z53.21 Procedure and treatment not carried out due to patient leaving prior to being seen by health care provider (principal)

== ENCOUNTER 2020-04-16 18:44 | Emergency (ER) | payer MEDICARE, MEDICAID ==
[~2020-04-16] VITALS: Ht 162.6 cm; Wt 60.0 kg
[2020-04-16 19:05] VITALS: BP 117/77
--- NOTE | 2020-04-16 19:20 | NUR ---
LATE ENTRY: PT BACK TO ROOM PER LEGAL HOLD. PT IS HAVING VISUAL AND AUDITORY HALLUCINATIONS PER SOCIAL WORK. RN TO BS AND PT IS CALMLY RESTING IN GURNEY, CHANGED INTO GOWN, CLOTHING PLACED IN LOCKER, SI PRECAUTIONS IN PLACE, SITTER IN LINE OF SIGHT. PT AMBULATES WITH A SMOOTH AND STEADY GAIT, FCS no SOB. GIVEN WARM BLANKET FOR COMFORT, WCTM.
--- NOTE | 2020-04-16 20:15 | NUR ---
THIS RN TO [employer] TO GET PT MEAL PER REQUEST. PT SITTING UP IN [facility], MENTIONS CUTS ON BILATERAL HEELS STATING "REN BEEN CLEANING THEM WITH HAND WATER VALVE REPAIRER AND WHEN MY TOES GET WET STUFF OOZES OUT OF THEM AND I THINK ITS A PROBLEM." PT ADMITS TO METH USE TODAY. WCTM. SITTER IN LINE OF SIGHT, SI PRECAUTIONS IN PLACE.
[2020-04-16 20:17] LABS: BASOPHILS # (AUTO) 0.03 x10^3/uL (0-0.1); BASOPHILS % (AUTO) 1 % (0-1); EOSINOPHILS # (AUTO) 0.31 x10^3/uL (0-0.4); EOSINOPHILS % (AUTO) 5 % (1-7); LYMPHOCYTES # (AUTO) 2.57 x10^3/uL (1-3.4); LYMPHOCYTES % (AUTO) 44 % (22-44); MD NO; MEAN CORPUSCULAR HEMOGLOBIN 29.4 pg (27.0-34.8); MEAN CORPUSCULAR HGB CONC 32.6 g/dL (32.4-35.8); MEAN PLATELET VOLUME 7.7 fL (7.4-10.4); MONOCYTES # (AUTO) 0.55 x10^3/uL (0.2-0.8); MONOCYTES % (AUTO) 10 % (2-9); NEUTROPHILS # (AUTO) 2.33 x10^3/uL (1.8-6.8); NEUTROPHILS % (AUTO) 40 % (42-75); PLATELET COUNT 261 x10^3/uL (130-400); RED BLOOD COUNT 4.37 x10^6/uL (3.82-5.3); RED CELL DISTRIBUTION WIDTH 13.8 % (9.6-15.2)
[2020-04-16] MEDS ORDERED: NEOSPORIN OINT. PKT 1 PACKET ONE (20:26)
[2020-04-16 20:28] LABS: ALANINE AMINOTRANSFERASE 16 U/L (12-78); ALBUMIN 3.7 g/dL (3.4-5.0); ANION GAP 5 mmol/L (5-15); CALCIUM 8.4 mg/dL (8.5-10.1); CHLORIDE 107 mmol/L (98-107); CREATININE 0.81 mg/dL (0.55-1.02); SALICYLATE LEVEL 2.4 mg/dL (2.8-20.0)
[2020-04-16 20:33] LABS: ALKALINE PHOSPHATASE 67 U/L (45-117); BILIRUBIN,TOTAL 0.3 mg/dL (0.2-1.0)
--- NOTE | 2020-04-16 20:46 | NUR ---
PT RESTING IN GURNEY, EYES CLOSED, LIGHTS DIMMED FOR COMFORT. NAD, SITTER IN LINE OF SIGHT, NO CHANGE IN CONDITION. SI PRECAUTIONS IN PLACE. WCTM.
[2020-04-16 20:52] LABS: FREE T4 (FREE THYROXINE) 0.86 ng/dL (0.76-1.46)
--- NOTE | 2020-04-16 21:18 | NUR ---
UA COLLECTED AND WALKED TO LAB, PT AMBULATED SMOOTHLY TO AND FROM BATHROOM. WCTM. SITTER IN LINE OF SIGHT.
--- NOTE | 2020-04-16 21:28 | NUR ---
ANUM GILES FROM [facility] AT FOR EVAL. PT MEDICATED PER NOV. NAD, P/W/D, SITTER IN LINE OF SIGHT, NO CHANGE IN CONDITION, WCTM.
[2020-04-16] MEDS ORDERED: ACETAMINOPHEN 325 MG TABLET PO ONE (21:30)
[2020-04-16] MEDS ORDERED: ACETAMINOPHEN 325 MG TABLET ONE (21:31)
[2020-04-16 21:33] LABS: MICROSCOPIC AUTO
[2020-04-16 21:39] LABS: AMPHETAMINE SCREEN, URINE Positive (Negative); BARBITURATE SCREEN, URINE Negative (Negative); BENZODIAZEPINE SCREEN, URINE Negative (Negative); CANNABINOID SCREEN, URINE Positive (Negative); COCAINE SCREEN, URINE Negative (Negative); METHADONE SCREEN, URINE Negative (Negative); OPIATE SCREEN, URINE Negative (Negative)
[2020-04-16] MEDS ORDERED: FOSFOMYCIN 3 GM PACKET PO STA (21:55)
[2020-04-16] MEDS ORDERED: FOSFOMYCIN 3 GM PACKET ONE (22:19)
--- NOTE | 2020-04-16 22:23 | NUR ---
PT MEDICATED PER MAR, NAD, SKIN WARM AND DRY, DENIES ADDITIONAL NEEDS AT THIS TIME, SITTER IN LINE OF SIGHT, PT HAVING VISUAL HALLUCINATIONS STATING "THINGS JUST POP OUT IN FRONT OF ME SOMETIMES." WCTM. WAITING FOR PLACEMENT.
--- NOTE | 2020-04-16 22:50 | NUR ---
mt: [facility] is accepting pt. rn speaking with psychologists now.
--- NOTE | 2020-04-16 23:00 | NUR ---
LATE ENTRY: PT HALLUCINATIONS WORSENIGN AND PT BECOMING SIGNIFICANTLY MORE AGGITATED, YELLING OUT INTO KERNS. SITTER IN LINE OF SIGHT, TM.
[2020-04-16] MEDS ORDERED: ZIPRASIDONE 20 MG INJ IM ONE (23:40)
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
[2020-04-17] MEDS ORDERED: ZIPRASIDONE 20 MG INJ IM ONE
--- NOTE | 2020-04-17 00:41 | NUR ---
PT ON GURNEY, EYES CLOSED, NAD, RESP WNL WITH EVEN AND BILATERAL CHEST RISE AND FALL, SKIN P/W/D, SITTER IN LINE OF SIGHT, WCTM.
--- NOTE | 2020-04-17 01:58 | NUR ---
PT RESTING ON GURNEY, EYES CLOSED, NAD, RESP WNL WITH EVEN AND BILATERAL CHEST RISE AND FALL, SKIN P/W/D, SITTER IN LINE OF SIGHT, WCTM. WAITING TO SEND TO [facility].
--- NOTE | 2020-04-17 02:55 | NUR ---
PT RESTING ON GURNEY, APPEARS COMFORTABLE, EYES CLOSED, BLANKETS COVERING BODY, NAD, SITTER IN LINE OF SIGHT. WCTM. WAITING TO TRANSFER TO [facility].
--- NOTE | 2020-04-17 04:10 | NUR ---
PT RESTING ON GURNEY, APPEARS COMFORTABLE, EYES CLOSED, BLANKETS COVERING BODY, NAD, SITTER IN LINE OF SIGHT. WCTM. WAITING TO TRANSFER TO [facility].
--- NOTE | 2020-04-17 04:57 | NUR ---
REPORT CALLED TO KOSTAS GILES, PT CARE TO BE TRANSFERRED UPON ARRIVAL TO THE FLOOR. NAD. P/W/D
== END 2020-04-17 04:58 | disposition other institution (70) ==
LOC: ED 21:08
DX: R45.851 Suicidal ideations (principal); N39.0 Urinary tract infection, site not specified; F19.10 Other psychoactive substance abuse, uncomplicated; F20.9 Schizophrenia, unspecified; R94.31 Abnormal electrocardiogram [ECG] [EKG]
CPT/HCPCS: 36415; 80053; 80307; 81001; 84439; 84443; 84703; 85025; 87086; 93005; 96372; 99284; J3486; Q0177

== ENCOUNTER 2020-05-09 15:56 | Emergency (ER) | payer MEDICARE, MEDICAID ==
[~2020-05-09] VITALS: Ht 162.6 cm; Wt 57.0 kg
[~2020-05-09 15:56] MED LIST changes: +CARB200T2 PO; +LITH150C PO; +NICO-485 TD; +PRAZ1CAP2 PO; +SERT100T32 PO
[2020-05-09 15:59] VITALS: BP 120/76
== END 2020-05-09 16:37 | disposition left against medical advice (07) ==
LOC: ED 16:00
DX: M79.671 Pain in right foot (principal); Z53.21 Procedure and treatment not carried out due to patient leaving prior to being seen by health care provider

== ENCOUNTER 2020-05-09 20:56 | Emergency (ER) | payer MEDICARE, MEDICAID ==
--- NOTE | 2020-05-09 21:35 | NUR ---
PATIENT ELOPED FROM [facility]
== END 2020-05-09 21:37 ==
LOC: ED 20:59
DX: Z53.21 Procedure and treatment not carried out due to patient leaving prior to being seen by health care provider (principal); Z88.0 Allergy status to penicillin; Z88.9 Allergy status to unspecified drugs, medicaments and biological substances; Z88.2 Allergy status to sulfonamides

== ENCOUNTER 2020-05-10 10:38 | Emergency (ER) | payer MEDICARE, MEDICAID ==
[~2020-05-10] VITALS: Ht 162.6 cm; Wt 58.5 kg
[2020-05-10 10:42] VITALS: BP 107/75
--- NOTE | 2020-05-10 13:00 | NUR ---
oil speculator: Called for pt. Pt not in lobby.
--- NOTE | 2020-05-10 13:15 | NUR ---
international tax manager: Called for pt. Pt not in lobby.
--- NOTE | 2020-05-10 13:30 | NUR ---
clerk supervisor: Called for pt. Pt not in lobby.
== END 2020-05-10 13:41 | disposition left against medical advice (07) ==
LOC: ED 13:35
DX: M79.673 Pain in unspecified foot (principal)
CPT/HCPCS: 99281

== ENCOUNTER 2020-05-11 11:21 | Emergency (ER) | payer MEDICARE, MEDICAID ==
[~2020-05-11] VITALS: Ht 162.6 cm; Wt 58.0 kg
[2020-05-11 11:25] VITALS: BP 112/71
[2020-05-11] MEDS ORDERED: NEOSPORIN OINT. PKT 1 PACKET ONE (11:38)
[2020-05-11] MEDS ORDERED: MUPIROCIN OINT 2%, 22GM TP ONE (12:00)
--- NOTE | 2020-05-11 12:27 | NUR ---
BREAK RN: PT DISCHARGED PER KIN MARTINEZ. PT DENIES SI, HI. PT REPORTS SHE IS FOLLOWING UP WITH [facility] TO GET HER MEDICATIONS FILLED. SHE CAN'T REMEMBER THE NAMES OF THEM. NO PSYCH EVAL NEEDED PER KIN MARTINEZ. PT REPORTS SHE WANTS TO LEAVE TO SMOKE. PT DISCHARGED.
--- NOTE | 2020-05-11 12:32 | NUR ---
Patient given WOUND CARE AND discharge instructions and they have confirmed that they understand the instructions. Patient ambulatory with steady gait. WOUND DRESSED WITH BACITRACIN, OK BY PA, PT GIVEN EXTRA BACITRACIN OINTMENT AND WOUND CARE SUPPLIES.
== END 2020-05-11 12:35 | disposition home or self-care (01) ==
LOC: ED 11:39
DX: L03.116 Cellulitis of left lower limb (principal); L03.115 Cellulitis of right lower limb; Z76.0 Encounter for issue of repeat prescription
CPT/HCPCS: 99283

== ENCOUNTER 2020-05-11 16:59 | Emergency (ER) | payer MEDICARE, MEDICAID ==
[~2020-05-11] VITALS: Ht 162.6 cm; Wt 57.7 kg
--- NOTE | 2020-05-11 18:23 | NUR ---
first contact with pt. +si with plans. pt stated"i haven't taken meds for two weeks" +etoh today. pt's aox4. resps even and unlabored. pt's belongings put into one bag and put into the locker.
[2020-05-11 18:56] LABS: ALBUMIN 3.8 g/dL (3.4-5.0); ANION GAP 4 mmol/L (5-15); CALCIUM 8.8 mg/dL (8.5-10.1); CHLORIDE 108 mmol/L (98-107); CREATININE 0.74 mg/dL (0.55-1.02); SALICYLATE LEVEL 3.7 mg/dL (2.8-20.0)
[2020-05-11 19:00] LABS: BASOPHILS # (AUTO) 0.03 x10^3/uL (0-0.1); BASOPHILS % (AUTO) 0 % (0-1); EOSINOPHILS # (AUTO) 0.55 x10^3/uL (0-0.4); EOSINOPHILS % (AUTO) 8 % (1-7); LYMPHOCYTES # (AUTO) 1.96 x10^3/uL (1-3.4); LYMPHOCYTES % (AUTO) 29 % (22-44); MD NO; MEAN CORPUSCULAR HEMOGLOBIN 29.5 pg (27.0-34.8); MEAN CORPUSCULAR HGB CONC 32.5 g/dL (32.4-35.8); MEAN CORPUSCULAR VOLUME 90.8 fL (80-100); MEAN PLATELET VOLUME 8.7 fL (7.4-10.4); MONOCYTES # (AUTO) 0.67 x10^3/uL (0.2-0.8); MONOCYTES % (AUTO) 10 % (2-9); NEUTROPHILS # (AUTO) 3.54 x10^3/uL (1.8-6.8); NEUTROPHILS % (AUTO) 53 % (42-75); PLATELET COUNT 261 x10^3/uL (130-400); RED BLOOD COUNT 4.14 x10^6/uL (3.82-5.3); RED CELL DISTRIBUTION WIDTH 13.2 % (9.6-15.2)
--- NOTE | 2020-05-11 19:03 | NUR ---
report given to mayra moreno.
--- NOTE | 2020-05-11 19:05 | NUR ---
First pt interaction, offgoing nurse notes no food provided for this pt and now no resources available, will provide snacks that we have in department. Urine specimen collected and sent, walked to lab
[2020-05-11 19:19] VITALS: BP 122/78
[2020-05-11 19:36] LABS: AMPHETAMINE SCREEN, URINE Positive (Negative); BARBITURATE SCREEN, URINE Negative (Negative); BENZODIAZEPINE SCREEN, URINE Negative (Negative); CANNABINOID SCREEN, URINE Positive (Negative); COCAINE SCREEN, URINE Negative (Negative); METHADONE SCREEN, URINE Negative (Negative); OPIATE SCREEN, URINE Negative (Negative)
--- NOTE | 2020-05-11 20:36 | NUR ---
Telepsych intiated, awaiting evaluation.
--- NOTE | 2020-05-11 21:46 | NUR ---
RESTING QUIETLY, SITTER OUTSIDE ROOM FOR PT SAFETY.
--- NOTE | 2020-05-11 22:44 | NUR ---
PT STANDING IN DOORWAY SCREAMING THAT SHE CAN NOT BREATH, BACK TO ROOM AND REASSURED THAT SHE IS IN FACT BREATHING, CALMS AT THIS TIME, JUICE GIVEN.
--- NOTE | 2020-05-11 23:28 | NUR ---
RESTING QUIETLY, SITTER OUTSIDE ROOM FOR PT SAFETY
--- NOTE | 2020-05-12 02:12 | NUR ---
Pt placed on hospital bed at this time. Sitter remains outside room for pt safety, NAD
--- NOTE | 2020-05-12 03:33 | NUR ---
SLEEPING QUIETLY, SITTER OUTSIDE ROOM FOR PT SAFETY
== END 2020-05-12 04:25 | disposition other institution (70) ==
LOC: ED 18:18
DX: R45.851 Suicidal ideations (principal); F15.10 Other stimulant abuse, uncomplicated; F20.9 Schizophrenia, unspecified; F32.9 Major depressive disorder, single episode, unspecified; F17.200 Nicotine dependence, unspecified, uncomplicated
CPT/HCPCS: 36415; 80048; 80307; 82040; 84703; 85025; 99284

== ENCOUNTER 2020-06-27 22:55 | Emergency (ER) | payer MEDICARE, MEDICAID ==
[~2020-06-27] VITALS: Ht 162.6 cm; Wt 60.2 kg
[~2020-06-27 22:55] MED LIST changes: +LITH300C PO; +PRAZ2CAP2 PO
--- NOTE | 2020-06-27 23:47 | NUR ---
MT: BOYFRIEND KARL CALLED. PHONE [phone]
--- NOTE | 2020-06-27 23:50 | NUR ---
THIS IS A 39 YO FEMALE COMING IN FOR "I HAVE MY HEART PAINS FOR 5 DAYS", PATIENT STATES SHE HAS BEEN TAKING BENADRYL AND TYLENOL PM FOR PAIN CONTROL WITH NO RELIEF. PATIENT STATES CHEST PAIN IS ACROSS CHEST AND DOWN LEFT ARM, RATED 9/10 DESCRIBED DULL AND SHARP. RESPIRATIONS EVEN AND UNLABORED, DENIES SOB, N/V TO THIS RN. ALL MONITORING IN PLACE, VSS, NADN AT THIS TIME. ERP IN ROOM FOR EVAL.
[2020-06-28 00:14] LABS: BASOPHILS % (AUTO) 1 % (0-1); EOSINOPHILS % (AUTO) 5 % (1-7); LYMPHOCYTES % (AUTO) 38 % (22-44); MEAN CORPUSCULAR HEMOGLOBIN 28.9 pg (27.0-34.8); MEAN CORPUSCULAR HGB CONC 32.2 g/dL (32.4-35.8); MEAN PLATELET VOLUME 7.9 fL (7.4-10.4); MONOCYTES % (AUTO) 8 % (2-9); NEUTROPHILS % (AUTO) 48 % (42-75); PLATELET COUNT 282 x10^3/uL (130-400); RED BLOOD COUNT 4.47 x10^6/uL (3.82-5.3)
[2020-06-28 00:19] LABS: ALBUMIN 3.7 g/dL (3.4-5.0); ANION GAP 4 mmol/L (5-15); CHLORIDE 109 mmol/L (98-107); CREATININE 0.67 mg/dL (0.55-1.02)
[2020-06-28 00:23] LABS: TROPONIN I < 0.015 ng/mL (0.000-0.045)
[2020-06-28 00:25] LABS: MD NO
--- NOTE | 2020-06-28 01:18 | NUR ---
CALL PLACED TO RADIOLOGY, MIKEL STATES SHE WILL LOOK INTO IT TO GET RESULT
[2020-06-28 01:19] VITALS: BP 117/70
--- NOTE | 2020-06-28 01:36 | NUR ---
Patient given discharge instructions and they have confirmed that they understand the instructions. Patient ambulatory with steady gait.
== END 2020-06-28 01:38 | disposition home or self-care (01) ==
LOC: ED 23:44
DX: R07.89 Other chest pain (principal); F17.210 Nicotine dependence, cigarettes, uncomplicated; J45.909 Unspecified asthma, uncomplicated
CPT/HCPCS: 36415; 71045; 80048; 82040; 84484; 84703; 85025; 93005; 99285; 99406

== ENCOUNTER 2020-07-03 21:31 | Emergency (ER) | payer MEDICARE, MEDICAID ==
[~2020-07-03] VITALS: Ht 162.6 cm; Wt 59.8 kg
[2020-07-03 21:38] VITALS: BP 110/72
--- NOTE | 2020-07-03 21:48 | NUR ---
AMBULATORY TO ED ROOM 7 W/ STEADY GAIT
[2020-07-03] MEDS ORDERED: LORazepam 1MG TABLET ONE (21:58)
[2020-07-03] MEDS ORDERED: LORazepam 1MG TABLET PO ONE (22:00)
--- NOTE | 2020-07-03 22:09 | NUR ---
PT CLARIFIED THAT SHE IS NOT ALLERGIC TO [facility]. MED GIVEN
== END 2020-07-03 23:17 | disposition home or self-care (01) ==
LOC: ED 22:13
DX: R06.00 Dyspnea, unspecified (principal); F17.210 Nicotine dependence, cigarettes, uncomplicated; F15.10 Other stimulant abuse, uncomplicated; Z72.9 Problem related to lifestyle, unspecified; R94.31 Abnormal electrocardiogram [ECG] [EKG]; R07.9 Chest pain, unspecified; J45.909 Unspecified asthma, uncomplicated
CPT/HCPCS: 71046; 93005; 99283; 99406

== ENCOUNTER 2020-07-12 03:40 | Emergency (ER) | payer MEDICARE, MEDICAID ==
[~2020-07-12 03:40] MED LIST changes: -RISP4TAB2 PO; +RISP4TAB66 PO
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
== END 2020-07-12 03:49 | disposition left against medical advice (07) ==
LOC: ED 03:45
DX: Z53.21 Procedure and treatment not carried out due to patient leaving prior to being seen by health care provider (principal)

== ENCOUNTER 2020-07-14 22:00 | Emergency (ER) | payer MEDICARE, MEDICAID ==
[~2020-07-14] VITALS: Ht 162.6 cm; Wt 59.0 kg
--- NOTE | 2020-07-14 23:25 | NUR ---
PT MEDICATED PER ORDERS. STATES SHE WANTS HELP GETTING INTO THE [facility].
[2020-07-15 00:07] VITALS: BP 117/60
--- NOTE | 2020-07-15 00:12 | NUR ---
D/C INSTRUCTIONS, MEDS & F/U APPT RV'WD WITH PT, SHE VERBALIZES UNDERSTANDING. RX GIVEN X1. CAB VOUCHER PROVIDED TO [facility] ON & OR IN [place]. PT AMBULATED OUT OF ED WITHOUT DIFFICULTY.
== END 2020-07-15 00:08 | disposition home or self-care (01) ==
LOC: ED 23:12
DX: F41.1 Generalized anxiety disorder (principal); R07.89 Other chest pain; J45.909 Unspecified asthma, uncomplicated; G43.909 Migraine, unspecified, not intractable, without status migrainosus; F25.9 Schizoaffective disorder, unspecified; F15.10 Other stimulant abuse, uncomplicated; R94.31 Abnormal electrocardiogram [ECG] [EKG]
CPT/HCPCS: 93005; 99283; Q0177

== ENCOUNTER 2020-07-16 16:48 | Emergency (ER) | payer MEDICARE, MEDICAID ==
--- NOTE | 2020-07-16 17:02 | NUR ---
CALLED FOR PT. PT NOT IN LOBBY
== END 2020-07-16 17:16 | disposition left against medical advice (07) ==
LOC: ED 17:10
DX: F41.9 Anxiety disorder, unspecified (principal); Z53.21 Procedure and treatment not carried out due to patient leaving prior to being seen by health care provider

== ENCOUNTER 2020-08-11 18:25 | Emergency (ER) | payer MEDICARE, MEDICAID ==
[~2020-08-11] VITALS: Ht 162.6 cm; Wt 58.9 kg
[2020-08-11 18:33] VITALS: BP 107/71
--- NOTE | 2020-08-11 19:26 | NUR ---
CLIP AND HANGER ATTACHER: [id number]
--- NOTE | 2020-08-11 19:41 | NUR ---
CLINICAL COORDINATOR NIL X2
--- NOTE | 2020-08-11 19:55 | NUR ---
NILX3
== END 2020-08-11 19:57 | disposition left against medical advice (07) ==
LOC: ED 18:45
DX: S53.402A Unspecified sprain of left elbow, initial encounter (principal); J45.909 Unspecified asthma, uncomplicated; F17.290 Nicotine dependence, other tobacco product, uncomplicated; X58.XXXA Exposure to other specified factors, initial encounter; Y93.89 Activity, other specified; Y92.89 Other specified places as the place of occurrence of the external cause; Y99.8 Other external cause status
CPT/HCPCS: 99283; 99406

== ENCOUNTER 2020-08-13 19:13 | Emergency (ER) | payer MEDICAID, MEDICARE ==
[~2020-08-13] VITALS: Ht 162.6 cm; Wt 62.0 kg
[2020-08-13 19:19] VITALS: BP 119/70
[2020-08-13] MEDS ORDERED: HYDROXYZINE PAMOATE 50MG CAP PO ONE (19:30)
[2020-08-13] MEDS ORDERED: hydrOXyzine 50MG TABLET ONE (19:34)
--- NOTE | 2020-08-13 20:26 | NUR ---
PATIENT DISCHAGED WITH PRESCRIPTION AND INSTRUCTION. VERBALIZED UNDERSTANDING.
== END 2020-08-13 20:29 | disposition home or self-care (01) ==
LOC: ED 20:05
DX: L03.211 Cellulitis of face (principal); F41.1 Generalized anxiety disorder; G43.909 Migraine, unspecified, not intractable, without status migrainosus; J45.909 Unspecified asthma, uncomplicated; F17.210 Nicotine dependence, cigarettes, uncomplicated
CPT/HCPCS: 99283; 99406

== ENCOUNTER 2020-08-14 23:06 | Emergency (ER) | payer MEDICARE, MEDICAID ==
--- NOTE | 2020-08-14 23:10 | NUR ---
PT NOT IN LOBBY FOR TRIAGE AT THIS TIME
--- NOTE | 2020-08-14 23:13 | NUR ---
PT NOT IN LOBBY AT THIS TIME
--- NOTE | 2020-08-14 23:15 | NUR ---
PT SHOUTING AND ESCORTED FROM LOBBY WITH SECURITY FOR SAFETY.
== END 2020-08-14 23:17 | disposition left against medical advice (07) ==
LOC: ED 23:11
DX: M79.602 Pain in left arm (principal); Z53.21 Procedure and treatment not carried out due to patient leaving prior to being seen by health care provider

== ENCOUNTER 2020-11-01 08:52 | Emergency (ER) | payer MEDICARE, MEDICAID ==
[~2020-11-01] VITALS: Ht 162.6 cm; Wt 78.2 kg
[~2020-11-01 08:52] MED LIST changes: +HYDR50CA2 PO; +PALI3TAB11 PO
--- NOTE | 2020-11-01 09:37 | NUR ---
PT STATES THAT SHE IS HEARING VOICES THAT ARE SINGING TO HER TO KILL HERSELF BUT SHE DOESN'T FEEL SUICIDAL. PT STATES MANUELA HAD BEEN WORKING BUT WAS TAKEN OFF OF IT UNTIL SHE WAS CLEAR OF METH. PT STATES SHE HAS NOT BEEN TAKING METH IN 3 MONTHS. PT STATES SENT BY WORKERS COMPENSATION CLAIMS EXAMINER TO GET HELP WITH MEDS
--- NOTE | 2020-11-01 10:22 | NUR ---
PT STATES VOICES ARE TELLING HER SUICIDAL THOUGHTS, BELONGINGS SECURED AND PT IN IMMEDIATE VIEW OF SITTER. COOPERATIVE AND LYING IN GURNEY
--- NOTE | 2020-11-01 11:53 | NUR ---
BREAK RN: MEGA PSYCH BREEDING TECHNICIAN, AT BEDSIDE.
[2020-11-01] MEDS ORDERED: PALIPERIDONE PALMITATE 234 MG/1.5 ML IM ONE (12:00)
--- NOTE | 2020-11-01 12:01 | NUR ---
BREAK RN: DIET TRAY PROVIDED. PT SITTING UP ON GURNEY. PT APPRECIATIVE OF FOOD. ROOM SECURE. PT IN DIRECT SIGHT OF SITTER.
--- NOTE | 2020-11-01 12:19 | NUR ---
BREAK RN: MED REQUESTED FROM PHARMACY. PT CLEARED BY PSYCH.
--- NOTE | 2020-11-01 12:24 | NUR ---
BREAK RN: REPORT BACK TO OMAR GILES.
--- NOTE | 2020-11-01 12:57 | NUR ---
MEDICATED NOTED ON NOV. PT CONTACTED RESOURCE TO OBTAIN A RIDE
[2020-11-01 13:01] VITALS: BP 122/80
== END 2020-11-01 13:04 | disposition home or self-care (01) ==
LOC: ED 09:26
DX: F23 Brief psychotic disorder (principal); R45.851 Suicidal ideations; J45.909 Unspecified asthma, uncomplicated; G43.909 Migraine, unspecified, not intractable, without status migrainosus
CPT/HCPCS: 96372; 99284; J2426; 99283

== ENCOUNTER 2020-11-18 04:24 | Emergency (ER) | payer MEDICARE, MEDICAID ==
[~2020-11-18] VITALS: Ht 162.6 cm; Wt 77.0 kg
[2020-11-18 04:29] VITALS: BP 125/79
== END 2020-11-18 04:58 | disposition left against medical advice (07) ==
LOC: ED 04:52
DX: F28 Other psychotic disorder not due to a substance or known physiological condition (principal); F20.9 Schizophrenia, unspecified; F43.10 Post-traumatic stress disorder, unspecified
CPT/HCPCS: 99284

== ENCOUNTER 2020-12-21 07:19 | Emergency (ER) | payer MEDICARE, MEDICAID ==
[~2020-12-21] VITALS: Ht 162.6 cm; Wt 75.2 kg
[2020-12-21 07:21] VITALS: BP 148/96
--- NOTE | 2020-12-21 07:47 | NUR ---
first contact with pt. pt c/o left sided chest/ahoulder/arm pain for a few days. denies any other symptoms. pt used meth last night. pt denies si/hi at this time. pt's aox4. resps even and unlabored. all monitors in place. call light within reach.
[2020-12-21] MEDS ORDERED: IBUPROFEN 600 MG TABLET ONE (07:50)
--- NOTE | 2020-12-21 07:53 | NUR ---
pt in xray at this time.
--- NOTE | 2020-12-21 07:56 | NUR ---
pt medicated per emar for pain. pt tolerated well.
[2020-12-21] MEDS ORDERED: IBUPROFEN 600 MG TABLET PO ONE (08:00)
--- NOTE | 2020-12-21 08:26 | NUR ---
Patient given discharge instructions and they have confirmed that they understand the instructions. Patient ambulatory with steady gait.
== END 2020-12-21 08:27 | disposition home or self-care (01) ==
LOC: ED 07:43
DX: M75.32 Calcific tendinitis of left shoulder (principal); R94.31 Abnormal electrocardiogram [ECG] [EKG]; X58.XXXA Exposure to other specified factors, initial encounter; Y93.89 Activity, other specified; Y92.89 Other specified places as the place of occurrence of the external cause; Y99.8 Other external cause status
CPT/HCPCS: 93005; 99283

== ENCOUNTER 2020-12-25 20:42 | Emergency (ER) | payer MEDICARE, MEDICAID ==
[~2020-12-25] VITALS: Ht 162.6 cm; Wt 74.7 kg
[2020-12-25 22:00] VITALS: BP 113/75
== END 2020-12-25 22:13 | disposition home or self-care (01) ==
LOC: ED 21:01
DX: F15.151 Other stimulant abuse with stimulant-induced psychotic disorder with hallucinations (principal); Z72.9 Problem related to lifestyle, unspecified; F17.210 Nicotine dependence, cigarettes, uncomplicated; J45.909 Unspecified asthma, uncomplicated; G43.909 Migraine, unspecified, not intractable, without status migrainosus; F25.9 Schizoaffective disorder, unspecified
CPT/HCPCS: 99283; 99406

== ENCOUNTER 2021-01-02 21:52 | Emergency (ER) | payer MEDICARE, MEDICAID ==
[~2021-01-02] VITALS: Ht 162.6 cm; Wt 74.9 kg
[2021-01-02 21:55] VITALS: BP 110/74
[2021-01-02] MEDS ORDERED: KETOROLAC 30 MG/1 ML IM ONE (23:00)
[2021-01-02] MEDS ORDERED: KETOROLAC 30 MG/1 ML ONE (23:12)
--- NOTE | 2021-01-02 23:15 | NUR ---
PT LEFT PRIOR TO RECIEVING MEDICATION AND D/C PAPERS
== END 2021-01-02 23:18 | disposition home or self-care (01) ==
LOC: ED 22:45
DX: M25.512 Pain in left shoulder (principal); M75.32 Calcific tendinitis of left shoulder
CPT/HCPCS: 99281

== ENCOUNTER 2021-03-02 13:53 | Emergency (ER) | payer MEDICARE, MEDICAID ==
--- NOTE | 2021-03-02 13:55 | NUR ---
PER REGISTRATION, PT CHECKED IN THEN DECIDED TO LEAVE ED.
--- NOTE | 2021-03-02 14:10 | NUR ---
PER REGISTRATION, PT BACK AND REQUESTING INHALER
--- NOTE | 2021-03-02 14:15 | NUR ---
PT NOT IN LOBBY.
--- NOTE | 2021-03-02 14:40 | NUR ---
NIL X 3
== END 2021-03-02 14:44 | disposition left against medical advice (07) ==
LOC: ED 14:38
DX: R06.02 Shortness of breath (principal); Z53.21 Procedure and treatment not carried out due to patient leaving prior to being seen by health care provider

== ENCOUNTER 2021-03-07 15:44 | Emergency (ER) | payer MEDICARE, MEDICAID ==
[~2021-03-07] VITALS: Ht 162.6 cm; Wt 64.3 kg
[2021-03-07 15:49] VITALS: BP 143/80
--- NOTE | 2021-03-07 16:03 | NUR ---
PATIENT ARRIVES WITH REPORTED SOB AND CHEST PAIN. HER FACE IS RED. SHE IS DIFFICULT TO UNDERSTAND. SHE IS UPSET STATING, "I'M I EVEN GETTING HELP THIS TIME BECAUSE THE LAST 4 TIMES I'VE NOT GOTTEN HELP". PATIENT APPEARS FREE OF DISTRESS, ON MONITOR, VSS WITH TACHY AT 105. PATIENT REPORTS SHE DID FOUR HITS OF UNREPORTED SUBSTANCE PRIOR TO ARRIVAL
--- NOTE | 2021-03-07 17:03 | NUR ---
MD TO BEDSIDE. PT NOT IN ROOM. HALLWAY RESTROOMS SEACHED,
--- NOTE | 2021-03-07 17:08 | NUR ---
hallway/bathrooms searched again. Patient called overhead. no answer. discharged from system as lwbs
== END 2021-03-07 17:11 | disposition left against medical advice (07) ==
LOC: ED 16:13
DX: R06.02 Shortness of breath (principal); R05 Cough; R51.9 Headache, unspecified; Z53.21 Procedure and treatment not carried out due to patient leaving prior to being seen by health care provider
CPT/HCPCS: 93005; 99283

== ENCOUNTER 2021-03-12 15:29 | Emergency (ER) | payer MEDICARE, MEDICAID ==
[~2021-03-12] VITALS: Ht 162.6 cm; Wt 63.9 kg
[2021-03-12 15:40] VITALS: BP 106/65
--- NOTE | 2021-03-12 17:25 | NUR ---
NIL X1
--- NOTE | 2021-03-12 17:41 | NUR ---
NIL X2
--- NOTE | 2021-03-12 17:55 | NUR ---
TASK RN: CALLED FOR ROOM, NO ANSWER
== END 2021-03-12 17:56 | disposition left against medical advice (07) ==
LOC: ED 16:00
DX: R07.89 Other chest pain (principal); Z53.21 Procedure and treatment not carried out due to patient leaving prior to being seen by health care provider
CPT/HCPCS: 93005

== ENCOUNTER 2021-03-15 22:41 | Emergency (ER) | payer MEDICARE, MEDICAID ==
[~2021-03-15] VITALS: Ht 162.6 cm; Wt 63.0 kg
--- NOTE | 2021-03-15 23:42 | NUR ---
PT STATES SHE HAS HAD CP FOR LAST 4 WEEKS, AND SKIN IS CRACKLING. ATTACHED TO MONITORS, VSS. EKG DONE IN TRIAGE. NADN. BED IN LOW POSITION, RAILS ENGAGED. CALL LIGHT ON LAP. RICARDO MENDEZ AT BEDSIDE FOR EVAL.
[2021-03-15] MEDS ORDERED: hydrOXyzine 50MG TABLET ONE (23:57)
[2021-03-16 00:14] VITALS: BP 102/64
--- NOTE | 2021-03-16 00:42 | NUR ---
Patient/Caregiver given discharge instructions and they have confirmed that they understand the instructions. Patient ambulatory with steady gait. NAD, all questions answered appropriately, denies additional needs at this time. No personal belongings left in room after discharge.
== END 2021-03-16 23:24 | disposition home or self-care (01) ==
LOC: ED 23:00
DX: R07.89 Other chest pain (principal); J45.909 Unspecified asthma, uncomplicated; Z76.0 Encounter for issue of repeat prescription; F17.210 Nicotine dependence, cigarettes, uncomplicated
CPT/HCPCS: 93005; 99283; 99406; Q0177

== ENCOUNTER 2021-03-27 18:09 | Emergency (ER) | payer MEDICAID, MEDICARE ==
[~2021-03-27] VITALS: Ht 162.6 cm; Wt 61.8 kg
--- NOTE | 2021-03-27 18:31 | NUR ---
BIB EMS FROM THE [facility] AFTER HER BOYFRIEND TOLD STAFF SHE TOOK PILLS. PT REPORTS THAT SHE DID NOT TAKE ANY PILLS. DENIES SI/HI. "I JUST NEED SOME MEDS". PT HAS PRESSURED SPEECH, TALKING NON STOP, ANXIOUS. PT IN BED IN GOWN. ROOM IS SAFE AND SECURE, ANDREAS SITTER OUTSIDE ROOM.
--- NOTE | 2021-03-27 18:34 | NUR ---
URINE COLLECTED AND SENT TO LAB
--- NOTE | 2021-03-27 19:15 | NUR ---
Introduced self to pt, pt calm and cooperative with exam. Pt has flight of ideas, pressured speech, however alert and oriented x4, able to make her needs known. She endorses some thoughts of SI but no active plan, states she had a prior SI attempt at age 25 when she attempted to overdose on Klonopin mixed in conuunction with etoh. Pt states she does not drink alcohol but abuses crystal meth occassionally. She admits to doing some today, and states she has cut down and only uses x6/month. Pt is well developed, does not appear malnourished. pt given PO fluids, tolerated well. Pt requesting Tylenol for a headache, will request Tylenol from attending MD. Pt denies HI, and denies any other needs at this time.
[2021-03-27 19:21] LABS: BASOPHILS % (AUTO) 2 % (0-1); EOSINOPHILS % (AUTO) 3 % (1-7); LYMPHOCYTES % (AUTO) 36 % (22-44); MEAN CORPUSCULAR HEMOGLOBIN 28.7 pg (27.0-34.8); MEAN CORPUSCULAR HGB CONC 32.8 g/dL (32.4-35.8); MEAN PLATELET VOLUME 7.5 fL (7.4-10.4); MONOCYTES % (AUTO) 8 % (2-9); NEUTROPHILS % (AUTO) 52 % (42-75); PLATELET COUNT 339 x10^3/uL (130-400); RED BLOOD COUNT 4.38 x10^6/uL (3.82-5.3); RED CELL DISTRIBUTION WIDTH 13.3 % (9.6-15.2)
[2021-03-27 19:31] LABS: ALBUMIN 3.1 g/dL (3.4-5.0); ANION GAP 3 mmol/L (5-15); CHLORIDE 109 mmol/L (98-107); SALICYLATE LEVEL 1.9 mg/dL (2.8-20.0)
[2021-03-27] MEDS ORDERED: ACETAMINOPHEN 325 MG TABLET ONE (19:33)
--- NOTE | 2021-03-27 19:37 | NUR ---
Gave pt PO Tylenol, pt became verbally aggressive, stating that people are trying to hurt her and that she needs her Vistaril. Educated pt that RN would speak to MD regarding additional medication.
[2021-03-27 19:38] LABS: ALANINE AMINOTRANSFERASE 11 U/L (12-78); ALKALINE PHOSPHATASE 63 U/L (45-117); BILIRUBIN,TOTAL 0.3 mg/dL (0.2-1.0); TOTAL PROTEIN 6.8 g/dL (6.4-8.2)
[2021-03-27] MEDS ORDERED: LORazepam 1MG TABLET ONE (19:44)
[2021-03-27 19:59] LABS: AMPHETAMINE SCREEN, URINE Positive (Negative); BARBITURATE SCREEN, URINE Negative (Negative); BENZODIAZEPINE SCREEN, URINE Negative (Negative); CANNABINOID SCREEN, URINE Positive (Negative); COCAINE SCREEN, URINE Negative (Negative); METHADONE SCREEN, URINE Negative (Negative); OPIATE SCREEN, URINE Negative (Negative)
[2021-03-27] MEDS ORDERED: LORazepam 1MG TABLET PO ONE (20:00)
[2021-03-27] MEDS ORDERED: ACETAMINOPHEN 325 MG TABLET PO ONE (20:00)
[2021-03-27] MEDS ORDERED: ZIPRASIDONE 20 MG INJ IM ONE ×2 (20:14→20:30)
--- NOTE | 2021-03-27 20:15 | NUR ---
TASK RN: PT BECOMING AGGRESSIVE WITH SITTER, PT OUT OF ROOM SCREAMING. ERP UPDATED, ORDER FOR 20MG GEODON IM, AND RESTRAINTS AT THIS TIME. SECURITY TO BEDSIDE PT PLACED IN 4PT RESTRAINTS SITTER IN SIGHT. PT MEDICATED PER NOV.
--- NOTE | 2021-03-27 21:02 | NUR ---
Spoke w/ Attending ED MD. Will trial removal of 2 locked leg restraints as pt is more calm and cooperative after pharmacological intervention.
--- NOTE | 2021-03-27 21:19 | NUR ---
Trial removal of 1 leg and 1 arm locked restraints removed by security personnell. Pt tolerating well. Calm and cooperative. VS updated. CMS intact, good ROM. No obvious injuries noted to locked restraint extremities. Will cont to monitor.
[2021-03-27 21:20] VITALS: BP 100/67
--- NOTE | 2021-03-27 21:46 | NUR ---
Anamaria called to remove the additional 2 point restraints that the pt remains in. Will reassess effectiveness. Pt calm and cooperative at this time. Sleeping comfortably.
--- NOTE | 2021-03-27 22:15 | NUR ---
Pt resting comfortably in room, denies needs. Pt in no obvious distress. Respirations even and unlabored.
--- NOTE | 2021-03-27 23:15 | NUR ---
Pt resting comfortably in room, denies needs. Pt in no obvious distress. Respirations even and unlabored.
--- NOTE | 2021-03-28 | NUR ---
Pt resting comfortably in room, denies needs. Pt in no obvious distress. Respirations even and unlabored.
--- NOTE | 2021-03-28 01:00 | NUR ---
Pt resting comfortably in room, denies needs. Pt in no obvious distress. Respirations even and unlabored.
--- NOTE | 2021-03-28 02:00 | NUR ---
Pt resting comfortably in room, denies needs. Pt in no obvious distress. Respirations even and unlabored. Pt awake, provided with PO fluids. Denies further needs or interventions. Reminded pt of continued cooperation with plan of care and re educated on plan of care. Pt verbalized understanding.
--- NOTE | 2021-03-28 03:00 | NUR ---
Pt resting comfortably in room, denies needs. Pt in no obvious distress. Respirations even and unlabored.
--- NOTE | 2021-03-28 04:00 | NUR ---
Pt resting comfortably in room, denies needs. Pt in no obvious distress. Respirations even and unlabored. Provided w/ crackers and juice.
--- NOTE | 2021-03-28 04:52 | NUR ---
pt amb to dc desk, no assist req, pt left with all belongings, nadn, pt sts "never to approach her after she leaves, and not to worry about her problems, pt also sts wants a restraining order on staff"
== END 2021-03-28 04:57 | disposition home or self-care (01) ==
LOC: ED 18:39
DX: F31.9 Bipolar disorder, unspecified (principal); F25.9 Schizoaffective disorder, unspecified; F15.10 Other stimulant abuse, uncomplicated; F43.0 Acute stress reaction; R94.31 Abnormal electrocardiogram [ECG] [EKG]; J45.909 Unspecified asthma, uncomplicated; G89.29 Other chronic pain
CPT/HCPCS: 36415; 80053; 80299; 80307; 80320; 84703; 85025; 93005; 96372; 99284; J3486; 80329; G0480

== ENCOUNTER 2021-04-12 22:58 | Emergency (ER) | payer MEDICARE ==
[~2021-04-12] VITALS: Ht 162.6 cm; Wt 59.7 kg
[2021-04-12 23:07] VITALS: BP 121/76
[2021-04-13 00:26] LABS: ALBUMIN 3.5 g/dL (3.4-5.0); ANION GAP 7 mmol/L (5-15); BASOPHILS % (AUTO) 1 % (0-1); CALCIUM 8.3 mg/dL (8.5-10.1); CHLORIDE 108 mmol/L (98-107); EOSINOPHILS % (AUTO) 5 % (1-7); LYMPHOCYTES % (AUTO) 40 % (22-44); MEAN CORPUSCULAR HGB CONC 33.3 g/dL (32.4-35.8); MEAN PLATELET VOLUME 8.6 fL (7.4-10.4); MONOCYTES % (AUTO) 10 % (2-9); NEUTROPHILS % (AUTO) 44 % (42-75); PLATELET COUNT 320 x10^3/uL (130-400); RED BLOOD COUNT 4.59 x10^6/uL (3.82-5.3); RED CELL DISTRIBUTION WIDTH 13.8 % (9.6-15.2)
--- NOTE | 2021-04-13 02:29 | NUR ---
called 3 times in the lobby. no answer
== END 2021-04-13 02:30 | disposition left against medical advice (07) ==
LOC: ED 04-13 02:27
DX: N93.9 Abnormal uterine and vaginal bleeding, unspecified (principal)
CPT/HCPCS: 36415; 80048; 82040; 84703; 85025; 99283

== ENCOUNTER 2021-05-07 10:23 | Emergency (ER) | payer MEDICARE, MEDICAID ==
[~2021-05-07] VITALS: Ht 162.6 cm; Wt 58.8 kg
[2021-05-07 10:38] VITALS: BP 120/87
--- NOTE | 2021-05-07 12:08 | NUR ---
ERPA AT BEDSIDE FOR ASSESSMENT.
[2021-05-07] MEDS ORDERED: NEOSPORIN OINT. PKT 1 PACKET ONE (12:13)
--- NOTE | 2021-05-07 12:32 | NUR ---
BACITRACIN AND BANDAIDS APPLIED TO HEEL AND FRESH SOCKS PROVIDED, PER ERPA INSTRUCTIONS.
== END 2021-05-07 12:34 | disposition home or self-care (01) ==
LOC: ED 12:17
DX: S91.311D Laceration without foreign body, right foot, subsequent encounter (principal); J45.30 Mild persistent asthma, uncomplicated; Z76.0 Encounter for issue of repeat prescription; X58.XXXD Exposure to other specified factors, subsequent encounter
CPT/HCPCS: 99282